=== PATIENT | male | born 1955 | race Two or more races ===

== ENCOUNTER 2020-05-12 14:50 | Inpatient (IN) | payer MEDICAID, OTHER ==
[~2020-05-12] VITALS: Ht 177.8 cm; Wt 70.0 kg
[2020-05-12 16:24] LABS: Hematocrit 35.3 % (41.0-53.0); Hemoglobin 11.7 g/dL (13.5-17.5); Mean Corpuscular Hemoglobin 28.5 pg (28.0-32.0); Mean Corpuscular Hgb Conc. 33.2 g/dL (32.0-36.0); Mean Corpuscular Volume 85.8 fL (80.0-100.0); Platelet Count (auto) 92 10^3/uL (140-450); Red Blood Cells 4.11 10^6/uL (4.5-5.90); Red Cell Distribution Width 15.3 % (11.8-14.3); White Blood Cell 11.3 10^3/uL (4.4-10.8)
[2020-05-12 16:39] LABS: Basophils % (manual) 0 (0.0-2.0); Blast Cells 0; Eosinophils % (manual) 0 (0-7); Metamyelocytes % 0; Myelocytes % 0; Promyelocytes % 0; Reactive Lymphocytes 0
[2020-05-12 16:46] LABS: Albumin 2.6 g/dL (3.4-5.0); Calcium 8.4 mg/dL (8.5-10.1); Magnesium 2.6 mg/dL (1.6-2.6); Potassium 3.8 mmol/L (3.5-5.1)
[2020-05-12 16:53] LABS: BUN/Creatinine Ratio 19.2; Total Protein 6.5 g/dL (6.4-8.2)
[2020-05-12 17:33] LABS: Lactate Dehydrogenase 552 U/L (87-241)
[2020-05-12 17:40] LABS: Band Neutrophils % (manual) 13; Lymphocytes % (manual) 4 (10.0-50.0); Monocytes % (manual) 4 (0-12)
[2020-05-12 17:54] LABS: CRP High Sensitivity > 19.0 mg/dL (< 0.3)
[2020-05-12 18:13] LABS: Urine Amorphous Crystal FEW /hpf (None Seen); Urine Bacteria FEW /hpf (None Seen); Urine Blood 1+ /uL (Negative); Urine Hyaline Cast MOD /lpf (0 - 2); Urine Mucus FEW (None Seen); Urine Specific Gravity 1.017 (1.001-1.035); Urine WBC 152 /hpf (0 - 3); Urine WBC Clumps PRESENT /hpf (None Seen)
[2020-05-12] MEDS ORDERED: SODIUM CHLORIDE 0.9% 1,000 ML IV SCH (21:10)
[2020-05-12] MEDS ORDERED: ONDANSETRON HCL 4 MG/2 ML VIAL IV PRN (21:15)
[2020-05-12] MEDS ORDERED: MORPHINE SULF INJ 2 MG/ML SYRINGE 1ML IV PRN (21:45)
[2020-05-12] MEDS ORDERED: NITROGLYCERIN 0.4 MG SL TAB SL PRN (21:45)
[2020-05-12] MEDS ORDERED: ALBUTEROL SULF HFA 90MCG INH 200DOSE IN SCH (22:00)
[2020-05-12] MEDS ORDERED: FAMOTIDINE 20 MG TAB PO SCH (22:00)
[2020-05-12] MEDS: DOXYCYCLINE 100MG/250ML 250 ML IV SCH (22:00)
[2020-05-12 22:52] VITALS: BP 105/60
[2020-05-13] VITALS (11 sets, daily range): BP systolic 115–152; BP diastolic 51–88
--- NOTE | 2020-05-13 01:00 | NUR ---
Telemetry admit from [facility] N[facility]LOR admitted to Telemetry unit after SBAR received. Patient oriented to SHILPI GALVAN, primary RN, unit, room, bed, and unit policies regarding patient care and visiting hours. Patient now on continuous telemetry monitoring, tele box # 7 and telemetry reading on arrival to unit is sinus rhythm. Patient is alert and oriented x4. Patient denies pain at this time. Patient is on 15L/min nonrebreather. Patient reports slight shortness of breath at this time. No sign/symptoms of distress noted at this time. Respirations are even and unlabored at this time. Instructed on plan of care and encouraged patient to call for assistance as needed, patient verbalized understanding. Bed is locked in lowest position, side rails x 2 are up, call light is within reach, and bed alarm is on.
--- NOTE | 2020-05-13 02:05 | NUR ---
Low Oxygen Saturation Patient's oxygen saturation was sustaining between 86-88% on nonbreather 15L/min. This RN paged RT and updated RT on patient's status. Patient placed on Oxymizer 12L/min and nonrebreather 15L/min per RT Quentin's recommendation. Patient is currently sitting in bed watching television with even and unlabored respirations. No sign/symptoms of distress noted or verbalized at this time. Oxygen saturation at this time is 92% on Oxymizer 12L/min and nonrebreather 15L/min. Will continue care. Addendum: 05/13/20 at 0348 by SHILPI GALVAN RN RN Charge nurse was made aware of patient's status.
--- NOTE | 2020-05-13 02:16 | NUR ---
Hospitalist Paged Re: Low Oxygen Saturation Hospitalist paged regarding low oxygen saturation. Awaiting call back.
--- NOTE | 2020-05-13 02:45 | NUR ---
Hospitalist Returned Call Updated ELECTRICIAN RECTIFIER MAINTENANCE Christianson on patient's status. Notified ELECTRICIAN RECTIFIER MAINTENANCE Christianson that patient's oxygen saturation was sustaining between 86-88% on 15L/min nonrebreather and that patient is now on 12L/min Oxymizer and 15L/min nonrebreather per RT's recommendation with oxygen saturation at 92%. Per ELECTRICIAN RECTIFIER MAINTENANCE Christianson "that's fine", no new orders received at this time.
--- NOTE | 2020-05-13 02:49 | NUR ---
Received Call From Drum Sander Offbearer RE: Oxygen Saturation Spoke with malt house supervisor regarding patient's oxygen saturation. Notified malt house supervisor that patient is on 12L/min Oxymizer and 15L/min nonrebreather with oxygen saturation at 96% at this time, per RT's recommendation. supervisor bakery sanitation made aware that this RN spoke with hospitalist regarding patient's oxygen saturation and no new orders were received. Per malt house supervisor he just spoke and received orders from hospitalist. Per malt house supervisor he will input orders received (see EMR). Will carry out orders once received.
[2020-05-13] MEDS ORDERED: FUROSEMIDE 20 MG/2 ML VIAL IV ONE (03:00)
--- NOTE | 2020-05-13 03:20 | NUR ---
Report Given Report given to Alyssa GONZALES.
--- NOTE | 2020-05-13 03:25 | NUR ---
Patient Transferred to 279B Patient transferred to room 279B. No sign/symptoms of distress noted upon departure. Patient care endorsed to Alyssa GONZALES.
[2020-05-13] MEDS ORDERED: LISI2.5T47 PO (03:28)
[2020-05-13] MEDS ORDERED: METO25TA5 PO (03:28)
[2020-05-13] MEDS ORDERED: HYDR-4072 PO (03:29)
--- NOTE | 2020-05-13 03:30 | NUR ---
Opening Shift Note Assumed care of patient, awake and alert. Instructed on POC and to call for assist PRN, will continue to monitor for changes Q1hr and PRN. bed in low position and call light within reach
--- NOTE | 2020-05-13 04:10 | NUR ---
RT NOTE PT PLACED ON BIPAP #B3 ON CPAP MODE WITH MEDIUM MASK ON STATED SETTINGS. BIPAP IS PLUGGED TO RED OUTLET. ALARMS ARE ON AND AUDIBLE TO NURSES STATION. BEDSIDE POX PLACED PER PROTOCOL. PT APPEARS TO TOLERATE WELL. CONT ORDERED. POX 100% Addendum: 05/13/20 at 0422 by Arianna Rosas RT Amended: Links added.
--- NOTE | 2020-05-13 05:00 | NUR ---
upon entering room patient attempted to get out of bed. Patient began to remove bipap mask o2 saturations in the 80's ,patient became drowsy tilting to the side and rolling his eyes back saying he felt like he was suffocating.Patient assisted back to bed .code assist called. melt house drag operator and discharge coordinator cash, psych arnp vinod, and respiratory at bedside. Patient reassurance and patient placed back on bipap. . patient saturations trending in the 90's. Patient placed with a sitter
[2020-05-13] MEDS ORDERED: LORazepam 2MG/ML-1ML VIAL ONE (05:04)
[2020-05-13] MEDS ORDERED: LORazepam 2MG/ML-1ML VIAL IV ONE ×2 (05:15→16:00)
--- NOTE | 2020-05-13 06:13 | NUR ---
per lab patient blood cultures came back positive for gram - rods. will endorse care to dayshift rn.
--- NOTE | 2020-05-13 06:14 | NUR ---
Patient attempting to get out of bed and removing oxygen monitor. Reassurance and calming measures provided to patient. oxygen saturation trending at 93% bipap in place. sitter at bedside. fall precautions in place.
--- NOTE | 2020-05-13 07:18 | NUR ---
report given to coleman crockett. patient resting in bed with sitter. no signs of sob distress or pain. ox saturation 93%. endorse to coleman alex for positive blood culture of gram negative rods.
[2020-05-13 08:27] LABS: Basophils # (auto) 0 10 ^3/uL (0-0.2); Basophils % (auto) 0.2 % (0.0-2.0); Eosinophils # (auto) 0.1 10 ^3/uL (0-0.8); Eosinophils % (auto) 0.9 % (0.0-7.0); Hematocrit 35.6 % (41.0-53.0); Lymphocytes # (auto) 0.1 10 ^3/uL (0.4-5.4); Lymphocytes % (auto) 1.1 % (10.0-50.0); Mean Corpuscular Hemoglobin 28.7 pg (28.0-32.0); Mean Corpuscular Hgb Conc. 33.7 g/dL (32.0-36.0); Mean Corpuscular Volume 85.1 fL (80.0-100.0); Monocytes # (auto) 0.3 10 ^3/uL (0-1.3); Monocytes % (auto) 2.6 % (0.0-12.0); Neutrophils # (auto) 11.1 10 ^3/uL (1.6-8.6); Neutrophils % (auto) 95.2 % (37.0-80.0); Nucleated Red Blood Cells % 0.1 %; Platelet Count (auto) 96 10^3/uL (140-450); Red Blood Cells 4.18 10^6/uL (4.5-5.90); Red Cell Distribution Width 15.9 % (11.8-14.3); White Blood Cell 11.7 10^3/uL (4.4-10.8)
[2020-05-13 08:47] LABS: Albumin 2.4 g/dL (3.4-5.0); Calcium 8.4 mg/dL (8.5-10.1)
[2020-05-13 08:53] LABS: BUN/Creatinine Ratio 20.4; Bilirubin, Total 1.1 mg/dL (0.2-1.0); Total Protein 6.1 g/dL (6.4-8.2)
[2020-05-13] MEDS: CHOLECALCIFEROL (VITD3) 1,000UNIT=25mCg TAB PO SCH (10:00)
[2020-05-13] MEDS ORDERED: ENOXAPARIN SOD 30 MG/0.3 ML SYRINGE SC SCH (10:00)
[2020-05-13] MEDS ORDERED: ASCORBIC ACID 1,000 MG TAB PO SCH (10:00)
[2020-05-13] MEDS: DOXYCYCLINE 100MG/250ML 250 ML IV SCH (10:49)
--- NOTE | 2020-05-13 13:45 | NUR ---
REPEAT COVID TEST DONE AND TAKEN TO LAB
[2020-05-13] MEDS ORDERED: ENOXAPARIN SOD 40 MG/0.4 ML SYRINGE SC ONE (15:15)
[2020-05-13] MEDS ORDERED: PIPERACILLIN-TAZOB 3.375GM 100 ML IV ONE (15:15)
[2020-05-13] MEDS ORDERED: DEXTROSE (50%) 50ML SYRG IV PRN (15:15)
[2020-05-13] MEDS: SODIUM CHLORIDE 0.9% 1,000 ML IV SCH (15:25)
[2020-05-13] MEDS ORDERED: LORazepam 2MG/ML-1ML VIAL IM ONE (15:30)
[2020-05-13] MEDS: ACCU-CHEK COMFORT CURVE STRIP VI SCH ×2 (17:21→22:00)
[2020-05-13] MEDS: InsuLIN REG 1unit/0.01ml Soln (100units/ml) SC SCH ×2 (17:22→22:00)
--- NOTE | 2020-05-13 18:25 | NUR ---
Respiratory note: PLACED PT ON NRB AT THIS TIME TO TRY AND EAT DINNER. PT TOLERATING WELL AT THIS TIME
--- NOTE | 2020-05-13 18:31 | NUR ---
Respiratory note: PLACED PT BACK ON BIPAP AT THIS TIME WITH ORIGINAL SETTINGS.
--- NOTE | 2020-05-13 19:45 | NUR ---
RECEIVED PATIENT FROM DAY SHIFT RN. PATIENT RESTING IN BED. NO S/S OF DISTRESS NOTED. DENIED PAIN FOR NOW. REORIENTED PATIENT TIME, PLACE AND SITUATION. PATIENT IS ON BIPAP WITH O2 SAT @ 98%. POC INSTRUCTED AND ENCOURAGED PATIENT TO CALL FOR FAMILY LAWYER IF NEEDED. BED IN LOWEST POSITION WITH SIDE RAILS UP X 2. CALL BECKETT WITHIN REACH. ALARM ON. SITTER AT BEDSIDE FOR SAFETY. CONTINUE TO MONITOR FOR CHANGES Q1H AND PRN.
[2020-05-13 20:20] LABS: Alcohol, Urine < 3.0 mg/dL (0-10); Amphetamine Screen, Urine NEGATIVE (NEGATIVE); Barbiturate Scree,Urine NEGATIVE (NEGATIVE); Benzodiazephine Screen, Urine NEGATIVE (NEGATIVE); Cannabinoid Screen, Urine POSITIVE (NEGATIVE); Cocaine Screen, Urine NEGATIVE (NEGATIVE); Opiate Scree,Urine POSITIVE (NEGATIVE); Phencyclidine Screen, Urine NEGATIVE (NEGATIVE)
--- NOTE | 2020-05-13 20:55 | NUR ---
PATIENT WAS GETTING AGITATED AND TRYING TO GET OUT OF BED. PATIENT WAS TRYING TO REMOVE THE BIPAP. STOPPED PATIENT, AND REORIENTED PATIENT TIME, PLACE AND SITUATION. PATIENT FINALLY CALM DOWN AND LYING ON BED. CONTINUE TO MONITOR.
--- NOTE | 2020-05-13 22:25 | NUR ---
ACCU-CHECK, BS 130. NO COVERAGE. CONTINUE TO MONITOR.
[2020-05-13] MEDS: TEMAZEPAM 15 MG CAP PO PRN (23:01)
[2020-05-13] MEDS: PIPERACILLIN-TAZOB 2.25GM 50 ML IV SCH (23:01)
--- NOTE | 2020-05-14 01:54 | NUR ---
PATIENT SLEEPING. NO S/S OF DISTRESS NOTED. BIPAP ON. CONTINUE TO MONITOR.
[2020-05-14] MEDS: SODIUM CHLORIDE 0.9% 1,000 ML IV SCH (04:32)
[2020-05-14] MEDS: ACCU-CHEK COMFORT CURVE STRIP VI SCH ×4 (06:35→22:11)
[2020-05-14] MEDS: PIPERACILLIN-TAZOB 2.25GM 50 ML IV SCH ×3 (06:35→22:09)
[2020-05-14] MEDS: InsuLIN REG 1unit/0.01ml Soln (100units/ml) SC SCH ×4 (06:35→22:17)
--- NOTE | 2020-05-14 06:35 | NUR ---
ACCU-CHECK, BS 147. INSULIN GIVEN ORDERED. CONTINUE TO MONITOR.
[2020-05-14 06:51] LABS: Hematocrit 33.2 % (41.0-53.0); Hemoglobin 11.1 g/dL (13.5-17.5); Mean Corpuscular Hemoglobin 28.5 pg (28.0-32.0); Mean Corpuscular Hgb Conc. 33.5 g/dL (32.0-36.0); Mean Corpuscular Volume 85.1 fL (80.0-100.0); Platelet Count (auto) 96 10^3/uL (140-450); Red Cell Distribution Width 15.9 % (11.8-14.3); White Blood Cell 10.4 10^3/uL (4.4-10.8)
[2020-05-14 07:00] LABS: Basophils % (manual) 0 (0.0-2.0); Blast Cells 0; Eosinophils % (manual) 0 (0-7); Metamyelocytes % 0; Myelocytes % 0; Promyelocytes % 0; Reactive Lymphocytes 0
[2020-05-14 07:12] LABS: Albumin 2.3 g/dL (3.4-5.0); Calcium 8.4 mg/dL (8.5-10.1); Magnesium 2.9 mg/dL (1.6-2.6); Potassium 3.7 mmol/L (3.5-5.1)
[2020-05-14 07:16] LABS: BUN/Creatinine Ratio 24.8; Bilirubin, Total 1.5 mg/dL (0.2-1.0); Total Protein 6.1 g/dL (6.4-8.2)
[2020-05-14 07:39] LABS: Band Neutrophils % (manual) 1; Lymphocytes % (manual) 3 (10.0-50.0); Monocytes % (manual) 4 (0-12)
[2020-05-14 08:00] VITALS: BP 131/77
--- NOTE | 2020-05-14 08:15 | NUR ---
PT REQUESTING TO BE TAKEN OFF BIPAP TO EAT BREAKFAST. PT ON 8 L/MIN VIA OXYMIZER. PT TOLERATING WELL. HR 74 BPM, RR2O BPM, BS ARE DIMINISHED AND CLEAR TO AUSCULTATION, SKIN IS WARM AND DRY TO THE TOUCH. RESPIRATION IS EVEN AND NON LABORED. 94% O2 SATS. WILL CONTINUE TO MONITOR PT.
[2020-05-14 09:00] VITALS: BP 131/77
[2020-05-14] MEDS ORDERED: ENOXAPARIN SOD 80 MG/0.8ML SYRINGE SC SCH (10:00)
[2020-05-14] MEDS: CHOLECALCIFEROL (VITD3) 1,000UNIT=25mCg TAB PO SCH (10:13)
[2020-05-14] MEDS: PANTOPRAZOLE 40 MG TAB PO SCH (10:13)
[2020-05-14] MEDS ORDERED: SODIUM CHLORIDE 0.9% 1,000 ML IV SCH (11:15)
[2020-05-14] MEDS ORDERED: NICOTINE 21MG/24 HR TOPICAL PATCH TD ONE (11:15)
[2020-05-14] MEDS ORDERED: BUMETANIDE 2.5mg/10ml (0.25 mg/ml) INJ IV ONE (11:30)
[2020-05-14] MEDS ORDERED: SODIUM CHL 0.9% 1000 ML BAG XX ONE (12:30)
[2020-05-14 13:00] VITALS: BP 140/86
[2020-05-14] MEDS: ALBUTEROL SULF 2.5 MG/0.5ML(0.5%) NEB SOLN NEB SCH ×3 (13:33→21:56)
[2020-05-14] MEDS: IPRATROPIUM BROM 0.5 MG/2.5ML INH SOL NEB SCH ×3 (13:33→21:56)
--- NOTE | 2020-05-14 13:46 | NUR ---
DR. GARCIA AT BEDSIDE AND PLACED DIALYSIS CATHETER TO PATIENTS LEFT NECK. PATIENT TOLERATED PROCEDURE WELL. DIALYSIS NURSE ON UNIT TO START DIALYSIS SOON. STAT CHEST X RAY PLACED TO OBTAIN PLACEMENT.
[2020-05-14] MEDS: methylPREDNISolone SOD SUCC 40 MG/ML VL IV SCH ×2 (15:08→22:07)
[2020-05-14 16:31] LABS: INR 1.28 (0.9-1.15)
[2020-05-14 16:51] VITALS: BP 147/93
--- NOTE | 2020-05-14 19:30 | NUR ---
RECEIVED PATIENT FROM DAY SHIFT RN. PATIENT RESTING IN BED. NO S/S OF DISTRESS NOTED. DENIED PAIN FOR NOW. REORIENTED PATIENT TIME AND SITUATION. PATIENT IS ON 10L/OXYMIZER WITH O2 SAT @ 88 - 92%. POC INSTRUCTED AND ENCOURAGED PATIENT TO CALL FOR MOLDER CLOSED MOLDS IF NEEDED. BED IN LOWEST POSITION WITH SIDE RAILS UP X 2. CALL BECKETT WITHIN REACH. ALARM ON. SITTER AT BEDSIDE FOR SAFETY. CONTINUE TO MONITOR FOR CHANGES Q1H AND PRN.
--- NOTE | 2020-05-14 21:40 | NUR ---
URINE SAMPLE COLLECTED AND SENT. CONTINUE CARE
[2020-05-14 22:00] VITALS: BP 140/79
[2020-05-14] MEDS: TEMAZEPAM 15 MG CAP PO PRN (22:09)
--- NOTE | 2020-05-14 22:10 | NUR ---
PT DOES NOT WANT TO WEAR BIPAP FOR THE NIGHT, NO SOB NOTED. PT AND SITTER KNOWS TO CALL IF SOB.
--- NOTE | 2020-05-14 22:35 | NUR ---
ACCU-CHECK, BS 215. INSULIN GIVEN ORDERED. CONTINUE TO MONITOR.
[2020-05-14 23:19] LABS: Protein, Urine 61.7 mg/dL (0.0-11.9)
[2020-05-15] MEDS: IPRATROPIUM BROM 0.5 MG/2.5ML INH SOL NEB SCH ×6 (01:51→22:00)
--- NOTE | 2020-05-15 01:54 | NUR ---
PATIENT SLEEPING. NO S/S OF DISTRESS NOTED. O2 SAT 95% ON 10L/OXYMIZER. CONTINUE TO MONITOR.
[2020-05-15 05:00] VITALS: BP 155/94
[2020-05-15 05:39] LABS: BUN/Creatinine Ratio 24.4; Calcium 8.4 mg/dL (8.5-10.1); Magnesium 2.6 mg/dL (1.6-2.6); Phosphorus 3.8 mg/dL (2.5-4.90)
[2020-05-15] MEDS: ALBUTEROL SULF 2.5 MG/0.5ML(0.5%) NEB SOLN NEB SCH ×5 (06:14→22:00)
[2020-05-15] MEDS: ACCU-CHEK COMFORT CURVE STRIP VI SCH ×4 (06:28→22:27)
[2020-05-15] MEDS: PIPERACILLIN-TAZOB 2.25GM 50 ML IV SCH ×4 (06:28→22:27)
[2020-05-15] MEDS: methylPREDNISolone SOD SUCC 40 MG/ML VL IV SCH ×3 (06:28→22:18)
[2020-05-15] MEDS: InsuLIN REG 1unit/0.01ml Soln (100units/ml) SC SCH ×4 (06:29→22:00)
--- NOTE | 2020-05-15 06:30 | NUR ---
ACCU-CHECK, BS 187. INSULIN GIVEN ORDERED. CONTINUE TO MONITOR.
[2020-05-15 08:26] LABS: % Iron Saturation 15.5 % (20-55)
[2020-05-15] MEDS ORDERED: hydrALAZINE HCL 20 MG/ML VL IV ONE (09:30)
[2020-05-15] MEDS: CHOLECALCIFEROL (VITD3) 1,000UNIT=25mCg TAB PO SCH (10:23)
[2020-05-15] MEDS: NICOTINE 21MG/24 HR TOPICAL PATCH TD SCH (10:23)
[2020-05-15] MEDS: ENOXAPARIN SOD 80 MG/0.8ML SYRINGE SC SCH (10:23)
[2020-05-15] MEDS: PANTOPRAZOLE 40 MG TAB PO SCH (10:24)
[2020-05-15] MEDS ORDERED: POTASSIUM EFFERVESENT TAB 25 MEQ PO ONE (10:30)
[2020-05-15] MEDS ORDERED: METOPROLOL TARTRATE 25 MG TAB PO ONE (11:00)
[2020-05-15] MEDS: LORazepam 2MG/ML-1ML VIAL IV PRN (12:01)
[2020-05-15 14:01] VITALS: BP 156/96
[2020-05-15] MEDS ORDERED: FUROSEMIDE 40 MG/4 ML VIAL IV ONE (16:30)
[2020-05-15 17:00] VITALS: BP 162/97
[2020-05-15] MEDS: hydrALAZINE HCL 20 MG/ML VL IV PRN (17:28)
[2020-05-15 17:29] VITALS: BP 162/97
--- NOTE | 2020-05-15 19:17 | NUR ---
RT NOTE PT WAS SEEN BY RT FOR HHN TX. PT TOLERATES WELL VIA MASK. PT ON BEDSIDE POX. PT ON 8L OXYMIZER. NO ADVERSE REACTION NOTED. CONT ORDERED Addendum: 05/15/20 at 1921 by Arianna Rosas RT Amended: Links added.
[2020-05-15 20:00] VITALS: BP 162/97
--- NOTE | 2020-05-15 22:03 | NUR ---
RT NOTE PT WAS SEEN BY RT FOR HHN TX. PT TOLERATES WELL VIA MASK. NO ADVERSE REACTION NOTED. PT WAS FOUND ON 8L OXYMIZER, FIO2 TITRATED TO 6L OXYMIZER. LIANE JOHNSON AT BEDSIDE. CONT ORDERED Addendum: 05/15/20 at 2205 by Arianna Rosas RT Amended: Links added.
[2020-05-15] MEDS: METOPROLOL TARTRATE 25 MG TAB PO SCH (22:25)
[2020-05-15] MEDS: TEMAZEPAM 15 MG CAP PO PRN (22:28)
[2020-05-16] MEDS: IPRATROPIUM BROM 0.5 MG/2.5ML INH SOL NEB SCH ×8 (01:56→22:35)
--- NOTE | 2020-05-16 02:00 | NUR ---
RT NOTE PT WAS SEEN BY RT FOR HHN TX. PT IS SLEEPING AND SHOWS NO S/S OF SOB OR DISTRESS. PT IS ON BEDSIDE POX FOR MONITORING AND THERE IS A SITTER AT BEDSIDE, HR 76, RR 18, BS NOT AUSCULTATED, POX 94% ON 6L OXYMIZER. JANET BOWEN NOTIFIED OF TX NOT GIVEN AND WILL CALL IF TX NEEDED BEFORE NEXT ROUNDS. CONT ORDERED Addendum: 05/16/20 at 0212 by Arianna Rosas RT Amended: Links added.
[2020-05-16 05:00] VITALS: BP 165/100
--- NOTE | 2020-05-16 05:03 | NUR ---
PT RESTING WITH NO C/O PAIN;SITTER AT BEDSIDE.
[2020-05-16] MEDS: PIPERACILLIN-TAZOB 2.25GM 50 ML IV SCH (05:08)
[2020-05-16] MEDS: methylPREDNISolone SOD SUCC 40 MG/ML VL IV SCH (05:37)
[2020-05-16] MEDS: InsuLIN REG 1unit/0.01ml Soln (100units/ml) SC SCH ×4 (06:49→21:18)
[2020-05-16] MEDS: ACCU-CHEK COMFORT CURVE STRIP VI SCH ×4 (06:49→21:17)
[2020-05-16] MEDS: ALBUTEROL SULF 2.5 MG/0.5ML(0.5%) NEB SOLN NEB SCH ×6 (07:09→22:35)
[2020-05-16 08:00] VITALS: BP 158/82
--- NOTE | 2020-05-16 08:00 | NUR ---
PT REPORTS EPISODES OF MILD EPISTAXIS. NO ACTIVE BLEEDING AT MOMENT. WILL CONTINUE TO MONITOR.
[2020-05-16 08:20] LABS: Hematocrit 39.6 % (41.0-53.0); Hemoglobin 13.1 g/dL (13.5-17.5); Mean Corpuscular Hemoglobin 27.7 pg (28.0-32.0); Mean Corpuscular Hgb Conc. 33.1 g/dL (32.0-36.0); Mean Corpuscular Volume 83.6 fL (80.0-100.0); Platelet Count (auto) 126 10^3/uL (140-450); Red Blood Cells 4.73 10^6/uL (4.5-5.90); Red Cell Distribution Width 15.5 % (11.8-14.3); White Blood Cell 17.7 10^3/uL (4.4-10.8)
[2020-05-16 08:28] LABS: Basophils % (manual) 0 (0.0-2.0); Blast Cells 0; Eosinophils % (manual) 0 (0-7); Myelocytes % 0; Promyelocytes % 0; Reactive Lymphocytes 0
[2020-05-16 08:47] LABS: Albumin 2.6 g/dL (3.4-5.0); BUN/Creatinine Ratio 29.1; Bilirubin, Total 1.3 mg/dL (0.2-1.0); Calcium 8.4 mg/dL (8.5-10.1)
[2020-05-16 08:53] LABS: Potassium 2.8 mmol/L (3.5-5.1)
[2020-05-16 09:08] LABS: Band Neutrophils % (manual) 3; Lymphocytes % (manual) 2 (10.0-50.0); Metamyelocytes % 3; Monocytes % (manual) 5 (0-12)
[2020-05-16] MEDS: ENOXAPARIN SOD 80 MG/0.8ML SYRINGE SC SCH (10:00)
--- NOTE | 2020-05-16 10:13 | NUR ---
DR. SHAIKH PENA. PT IN AGREEMENT WITH PLAN OF CARE. MD MADE AWARE OF LAB RESULTS AND PT'S C/O HEADACHE. WILL CONTINUE TO MONITOR
[2020-05-16] MEDS ORDERED: POTASSIUM CHL 20MEQ/100ML 100 ML IV ONE (10:15)
[2020-05-16] MEDS ORDERED: KETOROLAC TROMETH 30 MG/ML 1ML VIAL IV ONE (10:15)
[2020-05-16] MEDS ORDERED: POTASSIUM CHL 20 Meq TABLET PO ONE (10:15)
[2020-05-16] MEDS: CHOLECALCIFEROL (VITD3) 1,000UNIT=25mCg TAB PO SCH (10:51)
[2020-05-16] MEDS: PANTOPRAZOLE 40 MG TAB PO SCH (10:52)
[2020-05-16] MEDS: NICOTINE 21MG/24 HR TOPICAL PATCH TD SCH (10:52)
[2020-05-16] MEDS: METOPROLOL TARTRATE 25 MG TAB PO SCH ×2 (10:52→21:07)
[2020-05-16] MEDS ORDERED: cefTRIAXone 1GM/50ML D5W 50 ML IV ONE (11:45)
--- NOTE | 2020-05-16 12:09 | NUR ---
IV INSERTION TO RIGHT HAND #20. 1st ATTEMPT FLUSHING WELL. PT TOLERATED PROCEDURE WELL.
--- NOTE | 2020-05-16 12:41 | NUR ---
Nutrition Assessment Notes: Please see attached link for complete assessment Est [employer] needs BW 77 [id number] kcals (30-35 kcal/kgBW), Est Protein needs: 92-107 gms/day (1.2-1.4 gm/kgBW r/t HD). Will continue to monitor and reassess prn. Addendum: 05/16/20 at [address] Amended: Links added.
[2020-05-16 13:00] VITALS: BP 157/90
[2020-05-16] MEDS: hydrALAZINE HCL 20 MG/ML VL IV PRN (18:01)
--- NOTE | 2020-05-16 19:05 | NUR ---
OPENING NOTE Assumed care of patient at 1900. Patient currently on 8L via face mask. Patient's respiratory sounds clear, equal bilaterally and slightly labored. Patient exhibiting no signs of distress at this time. Updated patient on POC. Sitter present at bedside. Bed locked in lowest position, HOB elevated at least 30 degrees, side rails up x 2 and call light is within reach. Will continue to monitor.
--- NOTE | 2020-05-16 20:40 | NUR ---
Called/paged Dr. Clifford called re:PRN pain medication for headache. Waiting for call back. Continue care.
[2020-05-16] MEDS ORDERED: IBUPROFEN 600 MG TAB PO PRN ×2 (20:45→22:45)
--- NOTE | 2020-05-16 20:45 | NUR ---
returned call Dr. Clifford returned call, updated on patient status and reason for call, orders received. Ibuprofen 600mg Q8H prn ordered. Continue care.
[2020-05-16] MEDS ORDERED: methylPREDNISolone SOD SUCC 40 MG/ML VL IV SCH (22:00)
--- NOTE | 2020-05-16 22:20 | NUR ---
MELISSA HOSPITALIST Notified hospitalist Dr. Clifford of high blood pressure of 166/95. No new orders were given at this time.
[2020-05-16] MEDS: TEMAZEPAM 15 MG CAP PO PRN (23:43)
[2020-05-17] MEDS: IPRATROPIUM BROM 0.5 MG/2.5ML INH SOL NEB SCH ×6 (02:36→21:50)
[2020-05-17 05:36] LABS: Hematocrit 38.4 % (41.0-53.0); Mean Corpuscular Hemoglobin 28.3 pg (28.0-32.0); Mean Corpuscular Hgb Conc. 33.9 g/dL (32.0-36.0); Mean Corpuscular Volume 83.3 fL (80.0-100.0); Platelet Count (auto) 125 10^3/uL (140-450); Red Blood Cells 4.61 10^6/uL (4.5-5.90); Red Cell Distribution Width 15.6 % (11.8-14.3); White Blood Cell 15.7 10^3/uL (4.4-10.8)
[2020-05-17 06:03] LABS: Albumin 2.6 g/dL (3.4-5.0); Calcium 8.3 mg/dL (8.5-10.1); Potassium 3.5 mmol/L (3.5-5.1)
[2020-05-17 06:06] LABS: BUN/Creatinine Ratio 32.2; Bilirubin, Total 0.9 mg/dL (0.2-1.0); Total Protein 6.6 g/dL (6.4-8.2)
[2020-05-17 06:12] LABS: Basophils % (manual) 0 (0.0-2.0); Blast Cells 0; Eosinophils % (manual) 0 (0-7); Myelocytes % 0; Promyelocytes % 0; Reactive Lymphocytes 0
--- NOTE | 2020-05-17 06:21 | NUR ---
CRITICAL LAB VALUE BUN at 89. Increase from yesterday's value of 88. Nephrology and hospitalist are aware.
[2020-05-17] MEDS: ALBUTEROL SULF 2.5 MG/0.5ML(0.5%) NEB SOLN NEB SCH ×5 (06:24→21:50)
[2020-05-17] MEDS: LORazepam 2MG/ML-1ML VIAL IV PRN ×2 (06:33→20:04)
[2020-05-17 06:35] LABS: Lymphocytes % (manual) 3 (10.0-50.0); Monocytes % (manual) 3 (0-12)
[2020-05-17 06:37] LABS: Band Neutrophils % (manual) 3; Metamyelocytes % 2
[2020-05-17] MEDS: ACCU-CHEK COMFORT CURVE STRIP VI SCH ×4 (06:38→21:25)
[2020-05-17] MEDS: InsuLIN REG 1unit/0.01ml Soln (100units/ml) SC SCH ×4 (06:39→21:27)
--- NOTE | 2020-05-17 07:30 | NUR ---
CLOSING NOTE Endorsed care to coleman GONZALES.
--- NOTE | 2020-05-17 07:30 | NUR ---
RECEIVED REPORT AND CONTINUATION OF CARE,PATIENT AWAKE,ALERT, ORIENTED,OXYMIZER AT 8 LITERS IN USED, MARINE ELECTRONICS TECHNICIAN AT BEDSIDE TO MAKE SURE OXYMASK IS ON CONTINUOUSLY DUE TO PATIENT DESATURATES VERY QUICKLY PER REPORT.PATIENT RE ORIENTED,CALL LIGHT WITHIN REACH PATIENT INSTRUCTED,REMINDED TO CALL FOR ASSISTANCE ,SIDE RAILS UP X 2 BED ALARM ON WILL CHECK PATIENT 1 HOUR AND NEEDED.
[2020-05-17 08:31] VITALS: BP 155/93
--- NOTE | 2020-05-17 08:50 | NUR ---
TO [facility]. FOR VQ SCAN ON OXYMASK AT 8 LITERS,ACCOMPANIED BY [facility] TECH
[2020-05-17] MEDS ORDERED: cefTRIAXone 1GM/50ML D5W 50 ML IV SCH (09:00)
[2020-05-17] MEDS: METOPROLOL TARTRATE 25 MG TAB PO SCH ×2 (10:00→21:14)
[2020-05-17] MEDS: CHOLECALCIFEROL (VITD3) 1,000UNIT=25mCg TAB PO SCH (10:00)
[2020-05-17] MEDS: PANTOPRAZOLE 40 MG TAB PO SCH (10:00)
--- NOTE | 2020-05-17 10:00 | NUR ---
Flora CHANEY HOLD, PATIENT FOR HEMODIALYSIS
--- NOTE | 2020-05-17 10:40 | NUR ---
HOSPIALIST Called/paged CURING BIN OPERATOR JOSELINE HODGES called re: A TEMPERATURE OF 100.6 . Waiting for call back. Continue care. Addendum: 05/17/20 at 2344 by ANIL CANTRELL RN RN WRONG TIME
[2020-05-17 11:42] LABS: Hepatitis B Surface Antibody Negative
--- NOTE | 2020-05-17 12:27 | NUR ---
MD VISIT DR. OSMAN HERE TO SEE AND EXAMINED PATIENT
[2020-05-17] MEDS ORDERED: SODIUM CHLORIDE 0.9% 1,000 ML IV SCH (12:45)
[2020-05-17 12:49] LABS: Hepatitis B Core IgM Negative; Hepatitis B Surface Antigen Negative (Negative); Hepatitis C Antibody Negative (Negative)
[2020-05-17 13:00] VITALS: BP 158/89
--- NOTE | 2020-05-17 13:04 | NUR ---
PER DR. OSMAN TO HAVE CTA PROCEDURE FIRST BEFORE HEMODIALYSIS
--- NOTE | 2020-05-17 13:50 | NUR ---
TEMPORARY OFFICE ASSISTANT HERE,STATED CTA WILL BE DONE AT 1600 DUR TO PATIENT HAD LUNCH
[2020-05-17] MEDS: ENOXAPARIN SOD 80 MG/0.8ML SYRINGE SC SCH (13:53)
[2020-05-17] MEDS: NICOTINE 21MG/24 HR TOPICAL PATCH TD SCH (13:54)
--- NOTE | 2020-05-17 14:06 | NUR ---
SUPERVISOR MAPPING INFORMED CTA STUDY NEEDS TO BE DONE FIRST AND SCHEDULED AT 1600, BEFORE HEMODIALYSIS
[2020-05-17] MEDS ORDERED: IOHEXOL 350 MG/ML 100ML IJ ONE (14:10)
--- NOTE | 2020-05-17 15:15 | NUR ---
PATIENT FOR CTA CHEST,NEEDING g#20 TO FOREARM OR TO AC,ATTEMPTED AFTER 9 STICKS FROM 3 DIFFERENT NURSES UNSUCCESSFUL,PATIENT STATED TO REST AND HAVE THE TEST DONE TOMORROW
--- NOTE | 2020-05-17 15:30 | NUR ---
INFORMED DR. VICENTE INFORMED UNABLE TO START IV NEEDING FOR CTA,WAS ATTEMPTED X9 FROM DEFERENT RN'S AND PATIENT REQUESTING TO REST AND HAVE TEST DONE TOMORROW.
[2020-05-17] MEDS: HYDROcodone-ACET 5/325MG TAB PO PRN (16:01)
--- NOTE | 2020-05-17 16:03 | NUR ---
C/O HEAD ACHE,SCALE OF 5/10 ,MEDICATED WITH NORCO 5/325 PO,SEE eMAR
--- NOTE | 2020-05-17 16:05 | NUR ---
CNC LATHE MACHINIST AT BEDSIDE,HEMODIALYSIS TREATMENT STARTED
--- NOTE | 2020-05-17 16:11 | NUR ---
SONIA FROM CT DEPT. INFORMED OF UNABLE TO START G#20 FOR CTA
[2020-05-17 17:00] VITALS: BP 162/107
--- NOTE | 2020-05-17 17:00 | NUR ---
Temperature checked [id number],patient just had [place] at 5/325 at 1603,cooling measures,ice pack applied.
--- NOTE | 2020-05-17 18:00 | NUR ---
Temperature re checked 100.6,hemodialysis in progress.
--- NOTE | 2020-05-17 18:09 | NUR ---
Respiratory note: AT BEDSIDE FOR MED NEB TX PT ON DIALYSIS AT THIS TIME. CONGOLESE SPEAKER ONLY. PT WOULD LIKE ME TO RETURN AT A LATER TIME TO ADMINISTER MED NEB TX.
--- NOTE | 2020-05-17 19:10 | NUR ---
OPENING NOTE Assumed care of patient at 1900. Respiratory sounds clear, equal bilaterally and slightly labored. Patient is currently on 8 L O2 via simple mask. Patient verbalized that he is not feeling any pain at this time. Updated patient on POC. HOB elevated at least 30 degrees, bed locked in lowest position, side rails up x 3, and call light is within reach. Will continue to monitor.
--- NOTE | 2020-05-17 19:15 | NUR ---
HEMODIALYSIS ENDED TOLERATED WELL,REPORT GIVEN TO INCOMING NOC SHIFT RN,NO DISTRESS NO DISCOMFORT.
--- NOTE | 2020-05-17 21:00 | NUR ---
POOR PO INTAKE PATIENT EXHIBITING SIGNS OF POOR PO INTAKE EVIDENCED BY CONSUMPTION OF 0% OF DINNER
[2020-05-17] MEDS: cefTRIAXone 1GM/50ML D5W 50 ML IV SCH (21:13)
--- NOTE | 2020-05-17 22:40 | NUR ---
HOSPIALIST Called/paged TRAIN CONTROL ELECTRONIC TECHNICIAN JOSELINE HODGES called re: A TEMPERATURE OF 100.6 . Waiting for call back. Continue care. Addendum: 05/17/20 at 2346 by ANIL CANTRELL RN RN HOSPITALIST
--- NOTE | 2020-05-17 23:30 | NUR ---
HOSPITALIST RE-Called/paged TEACHER HOME THERAPY JOSELINE HODGES RE-called re: A TEMPERATURE OF 100.7. Waiting for call back. Continue care.
--- NOTE | 2020-05-18 | NUR ---
HOSPITALIST RE-Called/paged ARABIC LINGUIST JOSELINE HODGES RE-called re: A TEMPERATURE OF 100.7. Waiting for call back. Continue care.
[2020-05-18] MEDS ORDERED: IBUPROFEN 600 MG TAB PO ONE (00:30)
--- NOTE | 2020-05-18 00:30 | NUR ---
Hospitalist returned call Hospitalist PORTFOLIO MANAGER Paresh Christianson returned call, updated on patient status and reason for call, received orders for Motrin 600mg PO once. Continue care.
[2020-05-18] MEDS: TEMAZEPAM 15 MG CAP PO PRN ×2 (00:42→21:08)
[2020-05-18] MEDS: IPRATROPIUM BROM 0.5 MG/2.5ML INH SOL NEB SCH ×6 (02:28→22:14)
[2020-05-18] MEDS: HYDROcodone-ACET 5/325MG TAB PO PRN ×3 (03:30→20:08)
--- NOTE | 2020-05-18 04:48 | NUR ---
PATIENT REMOVED SIMPLE MASK AND ATTEMPTED TO GET OUT OF BED. O2 SAT DROPPED TO 78%. EDUCATED PATIENT ON IMPORTANCE OF KEEPING THE SIMPLE MASK ON AND PATIENT VERBALIZED UNDERSTANDING. PLACED COMMODE AT BEDSIDE.
[2020-05-18 05:55] LABS: Hematocrit 41.6 % (41.0-53.0); Hemoglobin 13.8 g/dL (13.5-17.5); Mean Corpuscular Hemoglobin 28.1 pg (28.0-32.0); Mean Corpuscular Volume 85.1 fL (80.0-100.0); Platelet Count (auto) 158 10^3/uL (140-450); Red Blood Cells 4.89 10^6/uL (4.5-5.90); White Blood Cell 15.6 10^3/uL (4.4-10.8)
[2020-05-18] MEDS: ALBUTEROL SULF 2.5 MG/0.5ML(0.5%) NEB SOLN NEB SCH ×5 (06:19→22:15)
[2020-05-18 06:21] VITALS: BP 125/91
[2020-05-18 06:42] LABS: BUN/Creatinine Ratio 24.8; Calcium 8.1 mg/dL (8.5-10.1)
[2020-05-18 06:45] LABS: Band Neutrophils % (manual) 0; Basophils % (manual) 0 (0.0-2.0); Blast Cells 0; Eosinophils % (manual) 0 (0-7); Metamyelocytes % 0; Myelocytes % 0; Promyelocytes % 0; Reactive Lymphocytes 0
--- NOTE | 2020-05-18 07:24 | NUR ---
Closing note Endorsed care of patient to day shift RN.
[2020-05-18 07:28] LABS: Lymphocytes % (manual) 5 (10.0-50.0); Monocytes % (manual) 3 (0-12)
--- NOTE | 2020-05-18 07:30 | NUR ---
RECEIVED REPORT AND CONTINUATION OF CARE,PATIENT AWAKE,ALERT, ORIENTED,UPDATED WITH PLAN OF CARE, CALL LIGHT WITHIN REACH PATIENT INSTRUCTED,REMINDED TO CALL FOR ASSISTANCE ,YOUTH OFFICER AT BEDSIDE,SIDE RAILS UP X 2 BED ALARM ON,WILL CHECK PATIENT 1 HOUR AND NEEDED.
[2020-05-18 09:00] VITALS: BP 148/94
--- NOTE | 2020-05-18 09:20 | NUR ---
PHYSICAL THERAPY P.T. AT BEDSIDE,ASSISTED AND AMBULATED PATIENT, WITH OXYGEN,ON OXYMIZER AT 8 LITERS,PATIENT AMBULATED ALL THE WAY TO THE DOOR THEN BACK TO BED,TOLERATED ACTIVITY.
[2020-05-18] MEDS ORDERED: POTASSIUM CHL 20 Meq TABLET PO ONE (10:00)
[2020-05-18] MEDS: CHOLECALCIFEROL (VITD3) 1,000UNIT=25mCg TAB PO SCH (10:21)
[2020-05-18] MEDS: predniSONE 20 MG TAB PO SCH (10:22)
[2020-05-18] MEDS: PANTOPRAZOLE 40 MG TAB PO SCH (10:24)
[2020-05-18] MEDS: cefTRIAXone 1GM/50ML D5W 50 ML IV SCH ×2 (10:24→21:09)
[2020-05-18] MEDS: METOPROLOL TARTRATE 25 MG TAB PO SCH ×2 (10:24→21:09)
[2020-05-18] MEDS: NICOTINE 21MG/24 HR TOPICAL PATCH TD SCH (10:25)
[2020-05-18] MEDS: ENOXAPARIN SOD 80 MG/0.8ML SYRINGE SC SCH (10:26)
[2020-05-18] MEDS: ACCU-CHEK COMFORT CURVE STRIP VI SCH ×3 (12:06→22:27)
[2020-05-18] MEDS: InsuLIN REG 1unit/0.01ml Soln (100units/ml) SC SCH ×3 (12:06→22:29)
--- NOTE | 2020-05-18 12:30 | NUR ---
PATIENT DAUGHTER NAI CALLED (PASSWORD CLARIFIED) UPDATED WITH PATIENT STATUS AND PLAN OF CARE
--- NOTE | 2020-05-18 12:34 | NUR ---
DR. OSMAN HERE RECEIVED ORDER TO START IVF OF .9NS AT 60CC/HR
--- NOTE | 2020-05-18 12:36 | NUR ---
Nutrition Followup/Consult Notes: Pt wt is 71.3 kg Pt was sleeping with METAL PRECISION MACHINE ASSEMBLER at bedside when rounded this morning. Per RN doc, pt appetite is fair, aeb ave 67% PO intake over 3 meals. Per METAL PRECISION MACHINE ASSEMBLER, pt is tolerating food well, but he does have some food dislikes. Requested that pt be encouraged to increase his PO intake by residing METAL PRECISION MACHINE ASSEMBLER. Noted his dislikes and relayed to diet kitchen cook. Pt with no distress. Will continue to monitor PO status, skin status, pertinent labs and weight trends. Will f/u in 3-5 days. Est Energy needs BW 77 [id number] kcals (30-35 kcal/kgBW), Est Protein needs: 92-107 gms/day (1.2-1.4 gm/kgBW r/t HD). Will continue to monitor and reassess prn. LABS: Pot 3.0 L, BUN 55 L, Cr 2.22 L, GFR 32 L (Stg 3), Alb 2.6 L, Gluc 192 H GI: Last BM noted on 05/09 per RN doc BS: 18 mod risk Refer to wound assessment report for full details. PES: Comments 1) Consider CCHO 60 gm if blood glu continues to be elev along with current diet 2) Consider low TG along with current diet 3) Continue current plan of care
[2020-05-18 13:00] VITALS: BP 135/83
[2020-05-18] MEDS: SODIUM CHLORIDE 0.9% 1,000 ML IV SCH ×2 (13:00→16:56)
--- NOTE | 2020-05-18 14:20 | NUR ---
IV g#20 TO LEFT AC STARTED BY PICC LINE RN
[2020-05-18] MEDS: AZITHROMYCIN 250 MG TAB PO SCH (16:55)
[2020-05-18 17:00] VITALS: BP 146/80
--- NOTE | 2020-05-18 19:06 | NUR ---
STATUS UNCHANGED NO DISTRESS NO DISCOMFORT.REPORT GIVEN TO INCOMING NOC SHIFT RN,
--- NOTE | 2020-05-18 19:10 | NUR ---
OPENING NOTE Assumed care of patient at 1900. Respiratory sounds clear, equal bilaterally and slightly labored. Patient is currently on 8 L O2 via Oxymizer. Patient verbalized that he is not feeling any pain at this time. Updated patient on POC. HOB elevated at least 30 degrees, bed locked in lowest position, side rails up x 3, and call light is within reach. Sitter present at bedside. Will continue to monitor.
[2020-05-19] MEDS: ALBUTEROL SULF 2.5 MG/0.5ML(0.5%) NEB SOLN NEB SCH ×6 (02:41→22:33)
[2020-05-19] MEDS: IPRATROPIUM BROM 0.5 MG/2.5ML INH SOL NEB SCH ×6 (02:42→22:33)
[2020-05-19 03:58] VITALS: BP 144/88
[2020-05-19] MEDS: LORazepam 2MG/ML-1ML VIAL IV PRN ×3 (04:25→21:13)
[2020-05-19 05:00] VITALS: BP 145/85
[2020-05-19] MEDS: InsuLIN REG 1unit/0.01ml Soln (100units/ml) SC SCH ×4 (06:27→22:25)
--- NOTE | 2020-05-19 06:28 | NUR ---
MEDICATION HELD Insulin held due to poor PO intake as evidenced by meal consumption of less than 25% during shift.
[2020-05-19] MEDS: ACCU-CHEK COMFORT CURVE STRIP VI SCH ×4 (07:00→22:13)
--- NOTE | 2020-05-19 07:00 | NUR ---
CLOSING SHIFT NOTE ENDORSED CARE TO DAY SHIFT RN
--- NOTE | 2020-05-19 07:25 | NUR ---
Opening Shift Note Assumed care of patient, awake and alert x3. No S/S of distress/SOB, respirations are shallow and slightly labored. Patient is on 15L via Non-rebreather mask, 02 sat at 93%. Updated on POC and instructed to call for assistance as needed, patient verbalized understanding. Bed locked in lowest position, HOB at 30 degrees, side rails up x2, call light within reach. Safety precautions in place. Sitter at bedside. Will continue to monitor for changes Q1hr and PRN.
[2020-05-19 07:32] LABS: Hematocrit 40.2 % (41.0-53.0); Hemoglobin 13.3 g/dL (13.5-17.5); Mean Corpuscular Hemoglobin 27.9 pg (28.0-32.0); Mean Corpuscular Hgb Conc. 33.1 g/dL (32.0-36.0); Mean Corpuscular Volume 84.3 fL (80.0-100.0); Platelet Count (auto) 201 10^3/uL (140-450); Red Blood Cells 4.77 10^6/uL (4.5-5.90); Red Cell Distribution Width 15.7 % (11.8-14.3); White Blood Cell 26.2 10^3/uL (4.4-10.8)
[2020-05-19 07:36] LABS: Band Neutrophils % (manual) 0; Basophils % (manual) 0 (0.0-2.0); Blast Cells 0; Metamyelocytes % 0; Myelocytes % 0; Promyelocytes % 0; Reactive Lymphocytes 0
[2020-05-19] MEDS ORDERED: LORazepam 2MG/ML-1ML VIAL IV ONE (07:45)
--- NOTE | 2020-05-19 07:46 | NUR ---
RT NOTE: PT FOUND ON NON-REBREATHER WITH SPO2 BETWEEN 94-96%. ATTEMPTED TO PLACE PT ON OXYMIZER BUT SPO2 DROPPED BETWEEN 89-90% ON 12L. PLACED BACK ONTO NON-REBREATHER AT 15 WITH SPO2 AT 94%. NO DISTRESS NOTED. PT STATES THAT HE HAS PERIODS OF SOB. SITTER AT BEDSIDE. WILL CONTINUE TO MONITOR.
[2020-05-19 08:00] VITALS: BP 154/86
[2020-05-19 08:04] LABS: BUN/Creatinine Ratio 27.1; Calcium 8.4 mg/dL (8.5-10.1); Potassium 3.4 mmol/L (3.5-5.1)
[2020-05-19 08:06] LABS: Eosinophils % (manual) 1 (0-7); Lymphocytes % (manual) 4 (10.0-50.0); Monocytes % (manual) 5 (0-12)
[2020-05-19] MEDS: cefTRIAXone 1GM/50ML D5W 50 ML IV SCH ×2 (10:03→22:11)
[2020-05-19] MEDS: ENOXAPARIN SOD 80 MG/0.8ML SYRINGE SC SCH (10:03)
[2020-05-19] MEDS: PANTOPRAZOLE 40 MG TAB PO SCH (10:03)
[2020-05-19] MEDS: predniSONE 20 MG TAB PO SCH (10:04)
[2020-05-19] MEDS: HYDROcodone-ACET 5/325MG TAB PO PRN ×2 (10:06→16:52)
[2020-05-19] MEDS: CHOLECALCIFEROL (VITD3) 1,000UNIT=25mCg TAB PO SCH (10:06)
[2020-05-19] MEDS: AZITHROMYCIN 250 MG TAB PO SCH (10:07)
[2020-05-19] MEDS: METOPROLOL TARTRATE 25 MG TAB PO SCH ×2 (10:07→22:13)
[2020-05-19] MEDS: NICOTINE 21MG/24 HR TOPICAL PATCH TD SCH (10:07)
[2020-05-19] MEDS ORDERED: BUSP10TA90 PO (10:27)
[2020-05-19] MEDS ORDERED: BACL20TA PO (10:27)
[2020-05-19] MEDS ORDERED: HYDR-3682 PO (10:27)
[2020-05-19] MEDS ORDERED: GABA800T97 PO (10:27)
[2020-05-19] MEDS ORDERED: SERT100T PO (10:27)
[2020-05-19] MEDS ORDERED: POTASSIUM EFFERVESENT TAB 25 MEQ PO ONE (12:30)
--- NOTE | 2020-05-19 12:39 | NUR ---
SPOKE WITH MD BLAKELY ORDERS RECEIVED TO RESUME ALL HOME MEDICATIONS. WILL INPUT AND FOLLOW THROUGH.
--- NOTE | 2020-05-19 12:40 | NUR ---
CT CHEST ANGIO IS ON HOLD UNTIL 05/20 LABS ARE NOT WITHIN RANGE TO HAVE CONTRAST AT THIS TIME PER RADIOLOGY. RADIOLOGY WILL REVIEW LABS IN THE AM AND WILL ATTEMPT TO FOLLOW THROUGH WITH CT. PATIENT IS TO BE NPO AFTER MIDNIGHT, WILL INFORM DIRECTOR BUSINESS MANAGEMENT RN.
[2020-05-19] MEDS ORDERED: hydrOXYzine 25 MG TAB or CAP PO PRN (12:45)
[2020-05-19 13:00] VITALS: BP 141/86
[2020-05-19] MEDS: SODIUM CHLORIDE 0.9% 1,000 ML IV SCH (13:10)
[2020-05-19] MEDS: GABAPENTIN 400 MG CAP PO SCH ×2 (14:12→22:13)
[2020-05-19] MEDS: busPIRone HCL 10 MG TAB PO SCH ×2 (14:12→22:11)
[2020-05-19] MEDS: SERTRALINE HCL 50 MG TAB PO SCH (14:12)
[2020-05-19] MEDS: BACLOFEN 10 MG TAB PO SCH ×2 (14:12→22:11)
--- NOTE | 2020-05-19 14:56 | NUR ---
RT NOTE: WAS ABLE TO PLACE PT ONTO 10L SIMPLE MASK. SPO2 HOLDING ABOUT 93%. NO DISTRESS NOTED. SITTER BEDSIDE AND AWARE TO PLACE NON-REBREATHER BACK ON IF PT DESATURATES AND PAGE FRO ME. WILL NOTIFY RN AND CONTINUE TO MONITOR.
--- NOTE | 2020-05-19 15:48 | NUR ---
assessment Patient is a 64 year old male. Per patients daughter Geetha prior to admission patient lived home with her and family and was independent. Per Geetha patient had no need for DME. Geetha informed ut patients PCP is Dr Ortiz. Geetha informed ut patient was having shortness of breath and a cough that was getting worse so family called 911 and patient was admitted. Patient is on 15L oxygen at this time. I informed Geetha patients post discharge needs to be determined prior to discharge. I informed Geetha I will continue to monitor and follow up as appropriate. Geetha verbalized understanding. Addendum: 05/19/20 at 1552 by Salmoe DUARTE Amended: Links added.
[2020-05-19] MEDS: Glucerna Carbsteady SHAKE Vanilla 8oz PO SCH (18:00)
[2020-05-19] MEDS ORDERED: FUROSEMIDE 40 MG/4 ML VIAL IV ONE (18:45)
[2020-05-19] MEDS ORDERED: POTASSIUM CHL 20 Meq TABLET PO ONE (19:00)
--- NOTE | 2020-05-19 19:56 | NUR ---
RECEIVED PATIENT FROM DAY SHIFT RN. PATIENT RESTING IN BED. NO S/S OF DISTRESS NOTED. DENIED PAIN FOR NOW. REORIENTED PATIENT TIME AND SITUATION. PATIENT IS ON 10L/MASK WITH O2 SAT @ 94 %. MEDICATED PATIENT ORAL POTASSIUM PILL, PATIENT SWALLOWED WELL. POC INSTRUCTED AND ENCOURAGED PATIENT TO CALL FOR BANBURY MIXER OPERATOR IF NEEDED. BED IN LOWEST POSITION WITH SIDE RAILS UP X 2. CALL BECKETT WITHIN REACH. ALARM ON. SITTER AT BEDSIDE FOR SAFETY. CONTINUE TO MONITOR FOR CHANGES Q1H AND PRN.
[2020-05-19 21:20] VITALS: BP 140/79
--- NOTE | 2020-05-19 22:25 | NUR ---
ACCU-CHECK, BS 152. INSULIN GIVEN ORDERED. CONTINUE TO MONITOR
--- NOTE | 2020-05-19 23:08 | NUR ---
REASSESSED PATIENT, BP 121/77, HR 89. CONTINUE TO MONITOR.
--- NOTE | 2020-05-19 23:54 | NUR ---
PATIENT NPO NOW. WATER AND FOOD REMOVED FROM BEDSIDE. SITTER AT BEDSIDE FOR SAFETY. CONTINUE TO MONITOR.
--- NOTE | 2020-05-20 01:57 | NUR ---
PATIENT'S O2 SAT DOWN TO 84% ON 10L/MASK AFTER PATIENT CHANGED POSITION IN THE BED. REPOSITIONED PATIENT TO COMFORT,, AND ASKED PATIENT TO BREATH DEEPLY, O2 SAT AROUND 89%, INCREASED O2 TO 15L/MASK, O2 SAT 90 - 91%. WILL CONTINUE TO MONITOR.
--- NOTE | 2020-05-20 02:55 | NUR ---
PATIENT BREATHING EVEN AND UNLABORED, NO DISTRESS NOTED. O2 SAT @ 93% TO 94%, OXYGEN DOWN TO 10L/MASK, O2 SAT STAT 92%. CONTINUE TO MONITOR.
--- NOTE | 2020-05-20 05:54 | NUR ---
PATIENT'S AGITATED AND C/O COULD NOT BREATH THROUGH THE MASK. O2 SAT DOWN TO 84%. RT GAGED AND CAME TO BEDSIDE. CHANGED MASK TO OXYMIZER. PATIENT CALM NOW. CONTINUE TO MONITOR.
[2020-05-20 06:22] LABS: Hemoglobin 13.3 g/dL (13.5-17.5)
[2020-05-20 06:24] LABS: Hematocrit 40.9 % (41.0-53.0); Mean Corpuscular Hemoglobin 27.5 pg (28.0-32.0); Mean Corpuscular Hgb Conc. 32.4 g/dL (32.0-36.0); Mean Corpuscular Volume 84.7 fL (80.0-100.0); Platelet Count (auto) 296 10^3/uL (140-450); Red Blood Cells 4.83 10^6/uL (4.5-5.90); Red Cell Distribution Width 15.6 % (11.8-14.3)
[2020-05-20] MEDS: BACLOFEN 10 MG TAB PO SCH ×3 (06:24→22:01)
[2020-05-20] MEDS: GABAPENTIN 400 MG CAP PO SCH ×3 (06:24→22:01)
[2020-05-20] MEDS: busPIRone HCL 10 MG TAB PO SCH ×3 (06:24→22:01)
[2020-05-20] MEDS: InsuLIN REG 1unit/0.01ml Soln (100units/ml) SC SCH ×2 (06:25→11:30)
[2020-05-20] MEDS: ACCU-CHEK COMFORT CURVE STRIP VI SCH ×2 (06:25→12:07)
[2020-05-20 06:26] VITALS: BP 157/78
[2020-05-20] MEDS: HYDROcodone-ACET 5/325MG TAB PO PRN ×2 (06:26→19:33)
--- NOTE | 2020-05-20 06:26 | NUR ---
PATIENT C/O PAIN @ 04/14, MEDICATED PATIENT ORDERED. ACCU-CHECK, BS 158. INSULIN GIVEN ORDERED. CONTINUE TO MONITOR.
[2020-05-20 06:31] LABS: White Blood Cell 30.4 10^3/uL (4.4-10.8)
[2020-05-20 06:32] LABS: Calcium 8.8 mg/dL (8.5-10.1); Magnesium 2.6 mg/dL (1.6-2.6)
[2020-05-20 06:34] LABS: BUN/Creatinine Ratio 27.5
[2020-05-20 06:35] LABS: Band Neutrophils % (manual) 0; Basophils % (manual) 0 (0.0-2.0); Blast Cells 0; Eosinophils % (manual) 0 (0-7); Metamyelocytes % 0; Myelocytes % 0; Promyelocytes % 0; Reactive Lymphocytes 0
--- NOTE | 2020-05-20 06:39 | NUR ---
RECEIVED CALL FROM [employer] FOR THE CRITICAL WBC 30.4. WILL PASS IT TO DAY SHIFT RN. CONTINUE TO MONITOR.
--- NOTE | 2020-05-20 06:40 | NUR ---
PATIENT'S CR 1.67 WHICH IS GREATER THAN 1.49, CALLED DAIRY HUSBANDMANANGELITA HAWKINS TO CONFIRM THAT PATIENT WILL NOT HAVE CTA DONE TODAY. CONTINUE TO MONITOR.
--- NOTE | 2020-05-20 07:15 | NUR ---
PT AWAKE, ALERT, ORIENTEDx3 DENIES ANY DISCOMFORT AT MOMENT. PT ON 1:1 SUPERVISION. CALL LIGHT WITHIN REACH. WILL CONTINUE TO MONITOR.
[2020-05-20] MEDS: ALBUTEROL SULF 2.5 MG/0.5ML(0.5%) NEB SOLN NEB SCH ×5 (07:16→23:07)
[2020-05-20] MEDS: IPRATROPIUM BROM 0.5 MG/2.5ML INH SOL NEB SCH ×5 (07:16→23:07)
[2020-05-20 07:24] LABS: Lymphocytes % (manual) 7 (10.0-50.0); Monocytes % (manual) 4 (0-12)
[2020-05-20 09:00] VITALS: BP 146/63
[2020-05-20] MEDS ORDERED: ENOXAPARIN SOD 80 MG/0.8ML SYRINGE SC SCH (10:00)
--- NOTE | 2020-05-20 10:00 | NUR ---
RADIOLOGY DEPT. CONSULTED FOR HD CATHETER REMOVAL. RADIOLOGY DEPT. AWARE.
[2020-05-20] MEDS: CHOLECALCIFEROL (VITD3) 1,000UNIT=25mCg TAB PO SCH (10:01)
[2020-05-20] MEDS: cefTRIAXone 1GM/50ML D5W 50 ML IV SCH ×2 (10:01→22:02)
[2020-05-20] MEDS: Glucerna Carbsteady SHAKE Vanilla 8oz PO SCH ×3 (10:01→18:15)
[2020-05-20] MEDS: PANTOPRAZOLE 40 MG TAB PO SCH (10:01)
[2020-05-20] MEDS: NICOTINE 21MG/24 HR TOPICAL PATCH TD SCH (10:02)
[2020-05-20] MEDS: AZITHROMYCIN 250 MG TAB PO SCH (10:02)
[2020-05-20] MEDS: SERTRALINE HCL 50 MG TAB PO SCH (10:02)
[2020-05-20] MEDS: METOPROLOL TARTRATE 25 MG TAB PO SCH ×2 (10:02→22:01)
[2020-05-20] MEDS: ENOXAPARIN SOD 80 MG/0.8ML SYRINGE SC SCH (10:03)
--- NOTE | 2020-05-20 11:00 | NUR ---
DR. RAWLS AT BEDSIDE FOR JUAN J HD CATHETER REMOVAL. PROCEDURE ASSIST. CATHETER TIP SENT TO LAB. TEGADERM APPLIED TO SITE, NO ACTIVE BLEEDING AT MOMENT. PT TOLERATED PROCEDURE WELL. WILL CONTINUE TO MONITOR.
[2020-05-20] MEDS: LINEZOLID 600MG TABLET PO SCH ×2 (12:02→22:01)
[2020-05-20 13:00] VITALS: BP 144/81
[2020-05-20 17:00] VITALS: BP 151/88
--- NOTE | 2020-05-20 19:34 | NUR ---
RECEIVED PATIENT FROM DAY SHIFT RN. PATIENT RESTING IN BED. NO S/S OF DISTRESS NOTED. C/O HEADACHE @ 07/15. AND PATIENT PREFERRED NORCO FOR NOW. MEDICATED PATIENT ORDERED. REORIENTED PATIENT SITUATION. PATIENT IS ON 10L/OXYMIZER WITH O2 SAT @ 92 %. POC INSTRUCTED AND ENCOURAGED PATIENT TO CALL FOR CUSTOMER ACQUISITION MANAGER IF NEEDED. BED IN LOWEST POSITION WITH SIDE RAILS UP X 2. CALL BECKETT WITHIN REACH. ALARM ON. SITTER AT BEDSIDE FOR SAFETY. CONTINUE TO MONITOR FOR CHANGES Q1H AND PRN.
--- NOTE | 2020-05-20 20:25 | NUR ---
REASSESSED PAIN 04/14. PATIENT STATED COMFORTABLE NOW. CONTINUE TO MONITOR.
--- NOTE | 2020-05-20 22:08 | NUR ---
SCHEDULED MEDICATION GIVEN ORDERED. PATIENT SWALLOWED WELL. O2 SAT 90% ON 10L/OXYMIZER, CONTINUE TO MONITOR.
--- NOTE | 2020-05-20 23:07 | NUR ---
Respiratory note: Scheduled medneb tx not administered, pt sleeping at this time. HR 88, RR 20, SPO2 95% on 10lpm oxymizer. No s/s of distress.
[2020-05-20 23:10] VITALS: BP 146/88
--- NOTE | 2020-05-21 01:22 | NUR ---
PATIENT SLEEPING. NO S/S OF DISTRESS NOTED. SITTER AT BEDSIDE FOR SAFETY. CONTINUE CARE.
[2020-05-21] MEDS: hydrALAZINE HCL 20 MG/ML VL IV PRN ×2 (01:51→17:00)
--- NOTE | 2020-05-21 01:52 | NUR ---
PATIENT WOKE UP FOR URINAL, REASSESSED BP 164/85, HR 82. PRN BP MEDICATION GIVEN ORDERED. CONTINUE TO MONITOR.
--- NOTE | 2020-05-21 02:50 | NUR ---
REASSESSED PATIENT, BP 154/95. HR 84. CONTINUE TO MONITOR.
[2020-05-21] MEDS: HYDROcodone-ACET 5/325MG TAB PO PRN ×2 (03:48→17:00)
--- NOTE | 2020-05-21 03:48 | NUR ---
PATIENT C/O HEADACHE @ 07/15 AND PREFERRED NORCO. MEDICATED PATIENT ORDERED. TEMP 99.8. COOLING MEASURE APPLIED AND ICE PACK APPLIED. CONTINUE TO MONITOR
[2020-05-21] MEDS: LORazepam 2MG/ML-1ML VIAL IV PRN ×2 (04:38→11:21)
--- NOTE | 2020-05-21 04:38 | NUR ---
REASSESSED PATIENT, HEADACHE DOWN TO 4/10, TEMP 98.5. PATIENT FEELING BETTER BUT ANXIETY. MEDICATED PATIENT ORDERED. CONTINUE TO MONITOR.
[2020-05-21 04:43] VITALS: BP 153/90
[2020-05-21] MEDS: busPIRone HCL 10 MG TAB PO SCH ×3 (05:40→22:00)
[2020-05-21] MEDS: GABAPENTIN 400 MG CAP PO SCH ×3 (05:40→22:00)
[2020-05-21] MEDS: BACLOFEN 10 MG TAB PO SCH ×2 (05:40→13:47)
--- NOTE | 2020-05-21 05:59 | NUR ---
MEDICATED PATIENT SCHEDULED AND ORDERED. PATIENT SWALLOWED WELL. O2 SAT 92% ON 10L/OXYMIZER, CONTINUE TO MONITOR.
[2020-05-21 06:34] LABS: Hematocrit 38.6 % (41.0-53.0); Hemoglobin 12.9 g/dL (13.5-17.5); Mean Corpuscular Hemoglobin 28.3 pg (28.0-32.0); Mean Corpuscular Hgb Conc. 33.3 g/dL (32.0-36.0); Mean Corpuscular Volume 84.9 fL (80.0-100.0); Platelet Count (auto) 242 10^3/uL (140-450); Red Blood Cells 4.55 10^6/uL (4.5-5.90); Red Cell Distribution Width 15.7 % (11.8-14.3); White Blood Cell 18.2 10^3/uL (4.4-10.8)
[2020-05-21 06:44] LABS: Band Neutrophils % (manual) 0; Basophils % (manual) 0 (0.0-2.0); Blast Cells 0; Metamyelocytes % 0; Myelocytes % 0; Promyelocytes % 0; Reactive Lymphocytes 0
[2020-05-21 06:55] LABS: Eosinophils % (manual) 3 (0-7); Lymphocytes % (manual) 7 (10.0-50.0); Monocytes % (manual) 3 (0-12)
[2020-05-21 06:56] LABS: BUN/Creatinine Ratio 25.3; Calcium 8.7 mg/dL (8.5-10.1); Potassium 3.7 mmol/L (3.5-5.1)
[2020-05-21] MEDS: IPRATROPIUM BROM 0.5 MG/2.5ML INH SOL NEB SCH ×5 (06:58→22:07)
[2020-05-21] MEDS: ALBUTEROL SULF 2.5 MG/0.5ML(0.5%) NEB SOLN NEB SCH ×5 (06:58→22:07)
--- NOTE | 2020-05-21 07:10 | NUR ---
PT ON 1:1 SUPERVISION. AWAKE, ALERT, ORIENTEDx3 DENIES DISCOMFORT AT MOMENT. WILL CONTINUE TO MONITOR.
[2020-05-21 09:00] VITALS: BP 145/81
--- NOTE | 2020-05-21 10:30 | NUR ---
Pt declined PT tx citing fatigue & not feeling well last night. He continued to refuse following encouragement. RN informed. Addendum: 05/21/20 at 1158 by Robert Griffin AUDIO PRODUCTION MANAGER Amended: Links added.
[2020-05-21] MEDS: cefTRIAXone 1GM/50ML D5W 50 ML IV SCH ×2 (11:21→22:00)
[2020-05-21] MEDS: ENOXAPARIN SOD 80 MG/0.8ML SYRINGE SC SCH (11:21)
[2020-05-21] MEDS: PANTOPRAZOLE 40 MG TAB PO SCH (11:22)
[2020-05-21] MEDS: NICOTINE 21MG/24 HR TOPICAL PATCH TD SCH (11:22)
[2020-05-21] MEDS: CHOLECALCIFEROL (VITD3) 1,000UNIT=25mCg TAB PO SCH (11:22)
[2020-05-21] MEDS: METOPROLOL TARTRATE 25 MG TAB PO SCH ×2 (11:22→22:00)
[2020-05-21] MEDS: AZITHROMYCIN 250 MG TAB PO SCH (11:23)
[2020-05-21] MEDS: LINEZOLID 600MG TABLET PO SCH ×2 (11:23→22:00)
[2020-05-21] MEDS: SERTRALINE HCL 50 MG TAB PO SCH (11:23)
[2020-05-21] MEDS: Glucerna Carbsteady SHAKE Vanilla 8oz PO SCH ×3 (11:24→18:02)
--- NOTE | 2020-05-21 12:56 | NUR ---
Nutrition Followup/Consult Notes: Pt wt is 71.8 kg Pt was alert and oriented at time of rounds. pt reports appetite is so-so. Appetite is poor aeb pt po intake avg of 43% x 3 days per RN note. Pt denies any GI issues Est Energy needs BW 77 [id number] kcals (30-35 kcal/kgBW), Est Protein needs: 92-107 gms/day (1.2-1.4 gm/kgBW r/t HD). Will continue to monitor and reassess prn. LABS: BUN 37H, Alb 2.6L, Creat 1.46H, GLUC 123H GI: Last BM noted on 05/09 per RN doc BS: 19 low risk Refer to wound assessment report for full details. PES: Altered nutrition related labs r/t to current medical condition aeb pt with elevated RFTs, hyperglycemia Comments 1) Consider CCHO 60 gm if blood glu continues to be elev along with current diet 2) Consider low TG along with current diet 3) Continue current plan of care
[2020-05-21 13:00] VITALS: BP 137/82
[2020-05-21] MEDS ORDERED: FUROSEMIDE 40 MG/4 ML VIAL IV ONE (13:00)
--- NOTE | 2020-05-21 13:15 | NUR ---
Pt refused PT tx for the 2nd time today citing fatigue. RN informed. RN & this ETHNOLOGY PROFESSOR attempted to encourage pt to participate. Addendum: 05/21/20 at 1403 by Robert Griffin ETHNOLOGY PROFESSOR Amended: Links added.
[2020-05-21 17:00] VITALS: BP 151/87
--- NOTE | 2020-05-21 19:20 | NUR ---
RECEIVED PATIENT FROM DAY SHIFT RN. PATIENT RESTING IN BED WITH EYES CLOSED. NO S/S OF DISTRESS AND NOTED. PATIENT IS ON 10L/OXYMIZER WITH O2 SAT @ 96%. POC INSTRUCTED AND ENCOURAGED PATIENT TO CALL FOR RESEARCH AIDE IF NEEDED. BED IN LOWEST POSITION WITH SIDE RAILS UP X 2. CALL BECKETT WITHIN REACH. ALARM ON. SITTER AT BEDSIDE FOR SAFETY. CONTINUE TO MONITOR FOR CHANGES Q1H AND PRN.
--- NOTE | 2020-05-21 19:50 | NUR ---
RT AT BEDSIDE FOR BREATHING TREATMENT.
[2020-05-21 20:08] VITALS: BP 156/75
[2020-05-21] MEDS: LORazepam 0.5 MG TAB PO PRN (20:18)
--- NOTE | 2020-05-21 20:19 | NUR ---
PATIENT EXPRESSED ANXIETY, MEDICATION PATIENT ORDERED. REORIENTED PATIENT SITUATION, AND REEDUCATED PATIENT ON POC. SITTER AT BEDSIDE FOR SAFETY. CONTINUE TO MONITOR.
[2020-05-21 22:00] VITALS: BP 124/76
--- NOTE | 2020-05-21 23:00 | NUR ---
REASSESSED BP 146/82, HR 99. CONTINUE TO MONITOR.
--- NOTE | 2020-05-22 01:47 | NUR ---
PATIENT SLEEPING. NO S/S OF DISTRESS NOTED. O2 SAT 93% ON 10L/OXYMIZER. CONTINUE TO MONITOR.
[2020-05-22] MEDS: HYDROcodone-ACET 5/325MG TAB PO PRN ×4 (04:45→23:34)
--- NOTE | 2020-05-22 04:46 | NUR ---
PATIENT WOKE UP AND C/O PAIN @ 04/14. MEDICATED PATIENT ORDERED. CONTINUE TO MONITOR.
[2020-05-22 05:00] VITALS: BP 164/99
[2020-05-22 05:38] LABS: Hematocrit 40.1 % (41.0-53.0); Hemoglobin 13.1 g/dL (13.5-17.5); Mean Corpuscular Hemoglobin 27.9 pg (28.0-32.0); Mean Corpuscular Hgb Conc. 32.7 g/dL (32.0-36.0); Mean Corpuscular Volume 85.1 fL (80.0-100.0); Platelet Count (auto) 299 10^3/uL (140-450); Red Blood Cells 4.72 10^6/uL (4.5-5.90); Red Cell Distribution Width 15.6 % (11.8-14.3); White Blood Cell 19.8 10^3/uL (4.4-10.8)
[2020-05-22 05:53] LABS: Basophils % (manual) 0 (0.0-2.0); Blast Cells 0; Metamyelocytes % 0; Myelocytes % 0; Promyelocytes % 0; Reactive Lymphocytes 0
[2020-05-22 05:59] LABS: Potassium 3.8 mmol/L (3.5-5.1)
[2020-05-22] MEDS: busPIRone HCL 10 MG TAB PO SCH ×3 (06:06→21:55)
[2020-05-22] MEDS: GABAPENTIN 400 MG CAP PO SCH ×3 (06:06→21:56)
[2020-05-22] MEDS: LORazepam 0.5 MG TAB PO PRN ×3 (06:07→22:03)
--- NOTE | 2020-05-22 06:10 | NUR ---
PATIENT'S BP 164/99, TRIED TO GIVE PRN BP MEDICATION. PATIENT REFUSED TO HAVE IT. EDUCATED PATIENT ON THE IMPORTANCE TO HIS BP, PATIENT REFUSED AND STATED " I DON'T NEED IT". WILL PASS IT ON TO DAY SHIFT RN. CONTINUE TO MONITOR.
[2020-05-22 06:13] LABS: BUN/Creatinine Ratio 27.5
[2020-05-22] MEDS: IPRATROPIUM BROM 0.5 MG/2.5ML INH SOL NEB SCH ×5 (07:17→22:32)
[2020-05-22] MEDS: ALBUTEROL SULF 2.5 MG/0.5ML(0.5%) NEB SOLN NEB SCH ×5 (07:18→22:33)
[2020-05-22 08:00] LABS: Band Neutrophils % (manual) 2; Eosinophils % (manual) 1 (0-7); Lymphocytes % (manual) 4 (10.0-50.0); Monocytes % (manual) 4 (0-12)
[2020-05-22] MEDS: Glucerna Carbsteady SHAKE Vanilla 8oz PO SCH ×3 (08:00→18:00)
[2020-05-22 09:00] VITALS: BP 144/84
[2020-05-22] MEDS: PANTOPRAZOLE 40 MG TAB PO SCH (10:18)
[2020-05-22] MEDS: AZITHROMYCIN 250 MG TAB PO SCH (10:19)
[2020-05-22] MEDS: CHOLECALCIFEROL (VITD3) 1,000UNIT=25mCg TAB PO SCH (10:19)
[2020-05-22] MEDS: SERTRALINE HCL 50 MG TAB PO SCH (10:19)
[2020-05-22] MEDS: METOPROLOL TARTRATE 25 MG TAB PO SCH ×2 (10:20→21:55)
[2020-05-22] MEDS: cefTRIAXone 1GM/50ML D5W 50 ML IV SCH ×2 (10:22→21:56)
[2020-05-22] MEDS: LINEZOLID 600MG TABLET PO SCH ×2 (10:22→21:57)
[2020-05-22] MEDS: ENOXAPARIN SOD 80 MG/0.8ML SYRINGE SC SCH (10:22)
[2020-05-22] MEDS: FUROSEMIDE 40 MG/4 ML VIAL IV SCH (10:30)
[2020-05-22] MEDS: NICOTINE 21MG/24 HR TOPICAL PATCH TD SCH (10:30)
--- NOTE | 2020-05-22 10:50 | NUR ---
PT NOTES RE: MEDICAL MARIJUANA PER PT, HE CAME TO ER WITH HIS 2 BAGS OF MEDICAL MARIJUANA AND HAD ASKED THE ER NURSE TO LEAVE THEM IN HIS BELONGINGS BAG. I SPOKE TO PT'S DAUGHTER, NAI, AND SHE STATED THAT THE MARIJUANA IS AT HOME. PT IS INFORMED AND WAS ADVISED TO CALL NAI TO VERIFY INFORMATION.
--- NOTE | 2020-05-22 11:23 | NUR ---
REPORT GIVEN TO [facility] CABA RN.
--- NOTE | 2020-05-22 11:24 | NUR ---
PAGED DR OSMAN RE ORDER FOR [facility] TRANSFER
[2020-05-22 13:00] VITALS: BP 136/91
--- NOTE | 2020-05-22 15:06 | NUR ---
PATIENT REFUSED PT. Addendum: 05/22/20 at 1506 by KANDIS MCLAIN PTT Amended: Links added.
[2020-05-22 16:33] VITALS: BP 132/78
--- NOTE | 2020-05-22 19:30 | NUR ---
Opening Shift Note Assumed care of patient, awake and alert. No S/S of distress/SOB or pain. Instructed on POC and to call for assist PRN, will continue to monitor for changes Q1hr and PRN.
--- NOTE | 2020-05-22 19:45 | NUR ---
While assessing patient's back patient became short of breath, patient's O2 saturation reduced to 70%. Increased patient's O2 to 15L oxymizer, patient currently at 92%. Will continue to monitor.
[2020-05-22] MEDS ORDERED: ENOXAPARIN SOD 80 MG/0.8ML SYRINGE SC SCH (22:00)
[2020-05-23] MEDS: TEMAZEPAM 15 MG CAP PO PRN ×2 (01:22→22:40)
--- NOTE | 2020-05-23 04:40 | NUR ---
Patient trying to get out of bed to use the bathroom. Sitter and RN informed patient he needs to remain in bed with oxygen. Patient offered a bedpan or bedside commode. Patient removed his oxygen and 02 censor. Patient began to desat to 65%. Patient returned to 90% after five minutes. Called RT for a breathing treatment.
[2020-05-23] MEDS: ALBUTEROL SULF 2.5 MG/0.5ML(0.5%) NEB SOLN NEB SCH ×5 (04:48→22:28)
[2020-05-23] MEDS: IPRATROPIUM BROM 0.5 MG/2.5ML INH SOL NEB SCH ×5 (04:48→22:28)
[2020-05-23 05:00] VITALS: BP 127/91
[2020-05-23 05:18] LABS: Basophils # (auto) 0.1 10 ^3/uL (0-0.2); Basophils % (auto) 0.9 % (0.0-2.0); Eosinophils # (auto) 0.4 10 ^3/uL (0-0.8); Eosinophils % (auto) 2.4 % (0.0-7.0); Hematocrit 40.7 % (41.0-53.0); Hemoglobin 13.4 g/dL (13.5-17.5); Lymphocytes # (auto) 1.9 10 ^3/uL (0.4-5.4); Mean Corpuscular Hemoglobin 27.9 pg (28.0-32.0); Mean Corpuscular Hgb Conc. 32.8 g/dL (32.0-36.0); Monocytes # (auto) 0.7 10 ^3/uL (0-1.3); Monocytes % (auto) 4.3 % (0.0-12.0); Neutrophils # (auto) 13.8 10 ^3/uL (1.6-8.6); Neutrophils % (auto) 81.4 % (37.0-80.0); Nucleated Red Blood Cells % 0.1 %; Platelet Count (auto) 312 10^3/uL (140-450); Red Blood Cells 4.79 10^6/uL (4.5-5.90); Red Cell Distribution Width 15.5 % (11.8-14.3); White Blood Cell 16.9 10^3/uL (4.4-10.8)
[2020-05-23] MEDS: HYDROcodone-ACET 5/325MG TAB PO PRN ×2 (06:03→13:21)
[2020-05-23] MEDS: busPIRone HCL 10 MG TAB PO SCH ×3 (06:03→21:30)
[2020-05-23] MEDS: GABAPENTIN 400 MG CAP PO SCH ×3 (06:04→21:30)
--- NOTE | 2020-05-23 07:33 | NUR ---
RECEIVED PATIENT AWAKE, ALERT AND ORIENTED X4. PATIENT DENIES SOB AND PAIN, NO S/S DISTRESS NOTED AT THIS TIME. PLAN OF CARE DISCUSSED. PATIENT IS CURRENTLY ON 15L VIA OXYMIZER AND SATING AT 96%. PATIENT ADVISED TO CALL FOR ASSISTANCE PRN. BED IN LOW AND LOCKED POSITION, CALL LIGHT AND PHONE WITHIN REACH. WILL CONTINUE TO MONITOR Q1HR AND PRN. SITTER AT BEDSIDE.
[2020-05-23 08:00] VITALS: BP 147/72
[2020-05-23 09:00] VITALS: BP 147/72
[2020-05-23] MEDS: ENOXAPARIN SOD 60 MG/0.6 ML SYRINGE SC SCH ×2 (09:55→21:30)
[2020-05-23] MEDS: FUROSEMIDE 40 MG/4 ML VIAL IV SCH (09:56)
[2020-05-23] MEDS: CHOLECALCIFEROL (VITD3) 1,000UNIT=25mCg TAB PO SCH (09:57)
[2020-05-23] MEDS: cefTRIAXone 1GM/50ML D5W 50 ML IV SCH ×2 (09:57→21:29)
[2020-05-23] MEDS: Glucerna Carbsteady SHAKE Vanilla 8oz PO SCH ×3 (09:57→18:00)
[2020-05-23] MEDS: NICOTINE 21MG/24 HR TOPICAL PATCH TD SCH (09:58)
[2020-05-23] MEDS: SERTRALINE HCL 50 MG TAB PO SCH (09:59)
[2020-05-23] MEDS: AZITHROMYCIN 250 MG TAB PO SCH (09:59)
[2020-05-23] MEDS: PANTOPRAZOLE 40 MG TAB PO SCH (10:00)
[2020-05-23] MEDS: METOPROLOL TARTRATE 25 MG TAB PO SCH ×2 (10:00→21:30)
[2020-05-23] MEDS: LINEZOLID 600MG TABLET PO SCH ×2 (10:34→21:30)
[2020-05-23] MEDS: LORazepam 0.5 MG TAB PO PRN ×2 (10:34→20:43)
--- NOTE | 2020-05-23 11:49 | NUR ---
PT Pt declined Physical Therapy. Signed: 05/23/20 at 1150 by RICHIE MEDRANO PTT <Co-Signature Required> Co-Signed: 05/23/20 at 1150 by Irwin Evans PT Addendum: 05/23/20 at 1151 by RICHIE MEDRANO PTT Amended: Links added.
[2020-05-23 12:28] VITALS: BP 141/78
--- NOTE | 2020-05-23 14:20 | NUR ---
TITRATED PT TO 8 LITERS OXYMIZER. SPO2 96%.
[2020-05-23 16:40] VITALS: BP 131/70
--- NOTE | 2020-05-23 18:42 | NUR ---
MED NEB TX NOT ADMINISTERED AT THIS TIME. PT EXPERIENCING V-TACH. HR CURRENTLY 110, SPO2 90% ON 10L OXYMIZER. WILL CONTINUE WITH NEXT SCHEDULED TX.
--- NOTE | 2020-05-23 18:45 | NUR ---
NOTED RUNS OF V-TACH AND TELE MONITOR. PATIENT REPORTS GENERALIZED PAIN AND DENIES CHEST PAIN. 12 LEAD EKG DONE, HOSPITALIST PAGED AND AWAITING CALL BACK
--- NOTE | 2020-05-23 19:15 | NUR ---
ENDORSE CARE TO NOC SHIFT RN.
[2020-05-23] MEDS: HYDROcodone-ACET 10/325MG TAB PO PRN (20:11)
--- NOTE | 2020-05-23 20:11 | NUR ---
OPEN NOTE Assumed care of pt. sitter at bedside. pt awake and alert. upon introducing self to pt, pt appears upset and waves me off. pt does not appear in any respiratory distress, calls nurse liar referencing previous experience with previous nurses not doing "as they say", in the timeframe in which they say; this was translated via sitter. this nurse assured pt that this nurse will perform tasks in timely manner and to verbalize needs to sitter or use of call light. bed is locked, low and 2x rails up. call light in reach. this nurse to round q1hr and prn. pt encouraged to call as needed. pt appears in better spirits upon this nurse leaving the room.
--- NOTE | 2020-05-23 20:25 | NUR ---
MELISSA HOSPITALIST spoke with MD Clifford in regards to pt run of vtach during dayshift. orders received, read back and will administer as such as needed.
[2020-05-23] MEDS ORDERED: METOPROLOL TARTRATE 1MG/1ML-5ML VIAL IV SCH (20:30)
[2020-05-23 22:00] VITALS: BP 116/75
--- NOTE | 2020-05-23 23:18 | NUR ---
paged respiratory after sitter notified this nurse of pt desaturation into the low 80's. pt on 10L oxymizer upon this nurse entering room. pt awake, alert and denied any distress. no s/s distress noted. pt sat up high fowlers, rate of o2 increased to 12L. saturation remained in the mid 80's. RT came in placed pt on non rebreather and saturation is presently 95% at 15L as set by RT, this nurse will continue to monitor and titrate as appropriate. pt further denies any complaints. call light in reach, this nurse to round q1hr and prn.
[2020-05-24 05:00] VITALS: BP 144/74
[2020-05-24] MEDS: LORazepam 0.5 MG TAB PO PRN ×2 (05:25→12:42)
[2020-05-24] MEDS: IPRATROPIUM BROM 0.5 MG/2.5ML INH SOL NEB SCH ×5 (06:15→22:00)
[2020-05-24] MEDS: ALBUTEROL SULF 2.5 MG/0.5ML(0.5%) NEB SOLN NEB SCH ×5 (06:15→22:00)
[2020-05-24] MEDS: GABAPENTIN 400 MG CAP PO SCH ×3 (06:17→21:26)
[2020-05-24] MEDS: busPIRone HCL 10 MG TAB PO SCH ×3 (06:17→21:25)
[2020-05-24 06:43] LABS: Basophils # (auto) 0.1 10 ^3/uL (0-0.2); Basophils % (auto) 0.8 % (0.0-2.0); Eosinophils # (auto) 0.3 10 ^3/uL (0-0.8); Eosinophils % (auto) 1.8 % (0.0-7.0); Hematocrit 38.7 % (41.0-53.0); Hemoglobin 12.8 g/dL (13.5-17.5); Lymphocytes # (auto) 1.6 10 ^3/uL (0.4-5.4); Lymphocytes % (auto) 9.4 % (10.0-50.0); Mean Corpuscular Hemoglobin 28.1 pg (28.0-32.0); Mean Corpuscular Hgb Conc. 33.1 g/dL (32.0-36.0); Monocytes # (auto) 0.7 10 ^3/uL (0-1.3); Monocytes % (auto) 4.1 % (0.0-12.0); Neutrophils % (auto) 83.9 % (37.0-80.0); Nucleated Red Blood Cells % 0.1 %; Platelet Count (auto) 342 10^3/uL (140-450); Red Blood Cells 4.55 10^6/uL (4.5-5.90); Red Cell Distribution Width 15.7 % (11.8-14.3); White Blood Cell 16.7 10^3/uL (4.4-10.8)
[2020-05-24 06:56] LABS: Calcium 8.8 mg/dL (8.5-10.1); Potassium 3.5 mmol/L (3.5-5.1)
[2020-05-24 06:58] LABS: BUN/Creatinine Ratio 28.7
[2020-05-24] MEDS: Glucerna Carbsteady SHAKE Vanilla 8oz PO SCH ×3 (07:59→17:12)
[2020-05-24 08:45] VITALS: BP 126/75
[2020-05-24] MEDS: FUROSEMIDE 40 MG/4 ML VIAL IV SCH (10:14)
[2020-05-24] MEDS: cefTRIAXone 1GM/50ML D5W 50 ML IV SCH ×2 (10:15→21:25)
[2020-05-24] MEDS: PANTOPRAZOLE 40 MG TAB PO SCH (10:15)
[2020-05-24] MEDS: CHOLECALCIFEROL (VITD3) 1,000UNIT=25mCg TAB PO SCH (10:15)
[2020-05-24] MEDS: METOPROLOL TARTRATE 25 MG TAB PO SCH ×2 (10:15→21:25)
[2020-05-24] MEDS: ENOXAPARIN SOD 60 MG/0.6 ML SYRINGE SC SCH ×2 (10:15→21:26)
[2020-05-24] MEDS: AZITHROMYCIN 250 MG TAB PO SCH (10:15)
[2020-05-24] MEDS: SERTRALINE HCL 50 MG TAB PO SCH (10:15)
[2020-05-24] MEDS: LINEZOLID 600MG TABLET PO SCH ×2 (10:15→21:40)
[2020-05-24] MEDS: NICOTINE 21MG/24 HR TOPICAL PATCH TD SCH (10:16)
[2020-05-24] MEDS: HYDROcodone-ACET 10/325MG TAB PO PRN ×2 (10:21→18:12)
[2020-05-24] MEDS ORDERED: BUMETANIDE 2.5mg/10ml (0.25 mg/ml) INJ IV ONE (11:15)
[2020-05-24 13:36] VITALS: BP 110/69
[2020-05-24] MEDS ORDERED: ACETYLCYSTEINE ORAL for CIN 20%(200MG/ML) 4ML PO ONE (14:00)
--- NOTE | 2020-05-24 15:09 | NUR ---
Nutrition Followup Notes: Pt wt is 68.6 kg Pt was alert and oriented at time of rounds. Pt is with a Renal Standard diet, appetite is improved and adequate aeb avg of 75% PO intake over 3 meals per RN doc. Will continue to monitor PO status, skin status, pertinent labs and weight trends. Will f/u in 3-5 days. Est Energy needs BW 77 [id number] kcals (30-35 kcal/kgBW), Est Protein needs: 92-107 gms/day (1.2-1.4 gm/kgBW r/t HD). Will continue to monitor and reassess prn. LABS: BUN 47H, Creat 1.64H, GFR 45 L, GLUC 123 H, Alb 2.6 L GI: Pt had 1 BM on 05/21 per RN doc BS: 18 mod risk Refer to wound assessment report for full details. PES: Altered nutrition related labs r/t to current medical condition aeb pt with elevated RFTs, hyperglycemia Comments 1) Consider CCHO 60 gm if blood glu continues to be elev along with current diet 2) Consider low TG along with current diet 3) Continue current plan of care
[2020-05-24 16:50] VITALS: BP 111/68
[2020-05-24] MEDS ORDERED: BUMETANIDE 2.5mg/10ml (0.25 mg/ml) INJ IV SCH (18:00)
--- NOTE | 2020-05-24 19:05 | NUR ---
Opening Shift Note Assumed care of patient, awake and alert. No S/S of distress/SOB or pain. Patient with HOB >30, eating dinner. Instructed on POC and to call for assist PRN, will continue to monitor for changes Q1hr and PRN. Sitter at bedside.
[2020-05-24 20:47] VITALS: BP 111/68
[2020-05-24] MEDS: TEMAZEPAM 15 MG CAP PO PRN (21:26)
[2020-05-24] MEDS: ACETYLCYSTEINE ORAL for CIN 20%(200MG/ML) 4ML PO SCH (21:41)
[2020-05-24 22:00] VITALS: BP 122/81
[2020-05-25] MEDS: LORazepam 0.5 MG TAB PO PRN ×3 (01:26→20:29)
--- NOTE | 2020-05-25 01:26 | NUR ---
Anxiety Patient c/o feeling anxious and started to desat maintain in the low 80's. Patient repositioned to HOB >90, given Ativan PRN, PRN breathing treatment given by RT. Patient is sating in the low 90's now.
[2020-05-25] MEDS: NOREPINEPHRINE 8 MG/250ML KIT 250 ML IV SCH (01:30)
[2020-05-25] MEDS: ALBUTEROL SULF 2.5 MG/0.5ML(0.5%) NEB SOLN NEB SCH ×7 (01:30→22:14)
[2020-05-25] MEDS: IPRATROPIUM BROM 0.5 MG/2.5ML INH SOL NEB SCH ×7 (01:30→22:14)
[2020-05-25] MEDS: fentaNYL Drip 2500mCg/250mlNS 250 ML IV SCH (02:00)
[2020-05-25] MEDS: HYDROcodone-ACET 10/325MG TAB PO PRN ×2 (02:22→09:25)
--- NOTE | 2020-05-25 02:22 | NUR ---
Pain patient c/o pain 9/10 to generalized body, pain medication administered.
--- NOTE | 2020-05-25 03:22 | NUR ---
Re Pain Patient resting with eyes closed, no sign of pain or distress.
[2020-05-25 05:00] VITALS: BP 120/70
[2020-05-25 05:30] LABS: Basophils # (auto) 0.2 10 ^3/uL (0-0.2); Basophils % (auto) 1.1 % (0.0-2.0); Eosinophils # (auto) 0.3 10 ^3/uL (0-0.8); Eosinophils % (auto) 2.1 % (0.0-7.0); Hemoglobin 12.3 g/dL (13.5-17.5); Lymphocytes # (auto) 1.8 10 ^3/uL (0.4-5.4); Lymphocytes % (auto) 11.9 % (10.0-50.0); Mean Corpuscular Hemoglobin 28.3 pg (28.0-32.0); Mean Corpuscular Hgb Conc. 33.2 g/dL (32.0-36.0); Mean Corpuscular Volume 85.2 fL (80.0-100.0); Monocytes # (auto) 0.7 10 ^3/uL (0-1.3); Monocytes % (auto) 4.7 % (0.0-12.0); Neutrophils # (auto) 12.5 10 ^3/uL (1.6-8.6); Neutrophils % (auto) 80.2 % (37.0-80.0); Nucleated Red Blood Cells % 0.2 %; Platelet Count (auto) 339 10^3/uL (140-450); Red Blood Cells 4.34 10^6/uL (4.5-5.90); Red Cell Distribution Width 15.4 % (11.8-14.3); White Blood Cell 15.6 10^3/uL (4.4-10.8)
[2020-05-25 05:48] LABS: BUN/Creatinine Ratio 27.7; Calcium 8.6 mg/dL (8.5-10.1); Potassium 3.2 mmol/L (3.5-5.1)
[2020-05-25 05:50] LABS: INR 1.11 (0.9-1.15); Partial Thromboplastin Time 31.3 sec (23.64-32.05)
[2020-05-25] MEDS: busPIRone HCL 10 MG TAB PO SCH ×2 (05:52→16:10)
[2020-05-25] MEDS: GABAPENTIN 400 MG CAP PO SCH ×3 (05:52→22:00)
[2020-05-25] MEDS: Glucerna Carbsteady SHAKE Vanilla 8oz PO SCH ×3 (07:44→16:56)
[2020-05-25] MEDS ORDERED: SODIUM CHLORIDE 0.9% 1,000 ML IV ONE (09:15)
--- NOTE | 2020-05-25 09:25 | NUR ---
PT PLACED ON 15L NRB WITH 8L OXYMIZER DUE TO PT DESATING TO 77%. RN MADE AWARE.
[2020-05-25] MEDS: CHOLECALCIFEROL (VITD3) 1,000UNIT=25mCg TAB PO SCH (09:40)
[2020-05-25] MEDS: PANTOPRAZOLE 40 MG TAB PO SCH (09:40)
[2020-05-25] MEDS: METOPROLOL TARTRATE 25 MG TAB PO SCH ×2 (09:40→22:00)
[2020-05-25] MEDS: ACETYLCYSTEINE ORAL for CIN 20%(200MG/ML) 4ML PO SCH ×2 (09:40→22:00)
[2020-05-25] MEDS: cefTRIAXone 1GM/50ML D5W 50 ML IV SCH (09:40)
[2020-05-25] MEDS: SERTRALINE HCL 50 MG TAB PO SCH (09:40)
[2020-05-25] MEDS: NICOTINE 21MG/24 HR TOPICAL PATCH TD SCH (09:41)
[2020-05-25] MEDS: LINEZOLID 600MG TABLET PO SCH (09:41)
[2020-05-25] MEDS: ENOXAPARIN SOD 60 MG/0.6 ML SYRINGE SC SCH (09:41)
--- NOTE | 2020-05-25 11:25 | NUR ---
Taken to tutorial laboratory supervisor for heart cath. Consents signed. Checklist completed.
--- NOTE | 2020-05-25 11:48 | NUR ---
Respiratory note: PATIENT SEEN FOR HYPOXIA AND STAT BLOOD GAS. PATIENT WAS FOUND ON 6LPM OXYMIZER AND 15LPM NRB MASK WITH SPO2 AT 94%. PATIENT WAS ALERT/ORIENTED AND RELAXED, AND SHOWED NO SIGNS/SYMPTOMS OF RESPIRATORY DISTRESS. PO2 WAS 89.9 AND RESULTS WERE REPORTED TO JANET FLORIAN. PATIENT WAS REMOVED FROM OXYMIZER AND LEFT ON NRB, SPO2 MAINTAINED AT 96% AND PATIENT REMAINED ALERT/ORIENTED AND IN NO DISTRESS.
--- NOTE | 2020-05-25 11:49 | NUR ---
NOTE: RECEIVED PT IN AUTO PARTS DELIVERY DRIVER ON NON-REBREATHER MASK AT 15LPM AND OXYMIZER AT 6LPM. NOTIFIED FISH CLEANER, ABG WAS ORDERED AND RESULTED. PT WAS TAKEN OFF OXYMIZER AND WAS LEFT ON THE NRB MASK AND WAS ABLE TO MAINTAIN 94% SP02. WILL CONTINUE TO MONITOR PATIENT.
--- NOTE | 2020-05-25 12:15 | NUR ---
PT IN GALVANIZING POT RUNNER UNABLE TO DRAW ABG AT THIS TIME.
[2020-05-25] MEDS ORDERED: IODIXANOL 320MG/ML 100ML BTL IV ONE (12:52)
[2020-05-25] MEDS ORDERED: LIDOCAINE 2%HCL (LOCAL ANESTH.) INJ 20ML MDV ONE (12:52)
[2020-05-25] MEDS ORDERED: fentaNYL CITRATE 100 MCG/2 ML VL ONE (13:01)
[2020-05-25] MEDS ORDERED: ANGIOMAX 250 MG VIAL IV ONE ×2 (13:01→13:28)
[2020-05-25] MEDS ORDERED: MIDAZOLAM HCL 1MG/1ML-2 ML VIAL ONE (13:02)
[2020-05-25] MEDS ORDERED: SODIUM CHL 0.9% 50 ML ONE (13:02)
[2020-05-25] MEDS ORDERED: ASPirin 325 MG TAB ONE (13:41)
[2020-05-25] MEDS ORDERED: CLOPIDOGREL 300 MG TAB ONE (13:41)
--- NOTE | 2020-05-25 15:45 | NUR ---
Returned from label printer Dressing is CDI. No sign of hematoma around area of insertion. Patient is a little groggy but says he feels better. He is on the non-rebreather at 15L and satting well in the 90's, says he feels like he can breath better. Will continue to monitor. Sitter at bedside. RN reported they placed a stent in the LAD.
--- NOTE | 2020-05-25 19:30 | NUR ---
Opening Shift Note Received report from day RN Wendy and Assumed care of patient. Patient is awake and alert. In report RN, patient has been breathing labored and having SOB, but pt has been taking medications with no problems. Took ativan earlier in day with no incident. Patient requesting ativan and norco. Advised patient we can not give together. Instructed on POC and to call for assist PRN, will continue to monitor for changes Q1hr and PRN. Addendum: 05/26/20 at 0026 by Fernando Pearce RN respirations 22
[2020-05-25 20:30] VITALS: BP 144/70
--- NOTE | 2020-05-25 21:30 | NUR ---
Called CODE ASSIST: [employer] called and advised me patient heart rate went to 140-150's. patient was on commode when patient heart rate went to 140-150's. patient had non rebreather oxygen on when he was on commode per NAVAL INSPECTOR. upon arrival, patient was labored, heart rate still elevated, and oxygen saturation was maintaining in 70's- called code assist. Patient had high blood pressure. Hospitalist came and assessed patient. patient will be transferring to [facility]. Will give report. Addendum: 05/26/20 at 0044 by Fernando Pearce RN patient was on commode having a BM.
--- NOTE | 2020-05-25 21:40 | NUR ---
provided report to [facility] RN, and transferring patient out now. notified Haydee RN of patient had a code assist, low oxygen saturations, high heart rate, and labored breathing and all this occurred when patient went to commode. Also endorsed to Haydee RN medications for 0 has not been given yet.
[2020-05-25 22:15] VITALS: BP 158/84
--- NOTE | 2020-05-25 22:19 | NUR ---
PT PLACED ON HFNC WITH SETTINGS 100% FIO2 AND 70L FLOW. SPO2 AT 78% DESPITE THESE SETTINGS. PT REFUSING MED NEB TX. JANET ROWAN AT BEDSIDE.
--- NOTE | 2020-05-25 22:19 | NUR ---
Received pt from German RN, pt diaphoretic, working hard with labored breathing, encouraged to calm down, breathe through nose. Sys bp 166 HR 133, Apresoline given. RT at bedside. German GONZALES stated he gave Ativan PO. Will continue to closely monitor.
[2020-05-25] MEDS: hydrALAZINE HCL 20 MG/ML VL IV PRN (22:27)
[2020-05-25] MEDS ORDERED: SUCCINYLCHOLINE CHLORIDE 20 MG/ML 10ML VIAL IV ONE ×3 (22:40→23:45)
[2020-05-25] MEDS ORDERED: ETOMIDATE (2MG/ML) 20ML VIAL IV ONE ×3 (22:40→23:45)
--- NOTE | 2020-05-25 22:49 | NUR ---
MEDS: Etomidate 15mg IVP & Succinylcholine 60mg IVP given for intubation.
--- NOTE | 2020-05-25 22:50 | NUR ---
PT DID NOT IMPROVE WITH HFNC. SPO2 REMAINS 78%, RR 44. PT INTUBATED AT THIS TIME BY MYSELF WITH JEET HODGES AT BEDSIDE. TUBE PLACEMENT CONFIRMED BY POSITIVE CAPNOMETER COLOR CHANGE AND BREATH SOUNDS. PT TRANSPORTED TO ICU WITHOUT INCIDENT IMMEDIATELY FOLLOWING INTUBATION. Addendum: 05/25/20 at 2335 by TEETEE POST RT ETT SIZE 8.0 AND SECURED BY PARTH AT 24 UPPER LIP.
--- NOTE | 2020-05-25 22:50 | NUR ---
INTUBATION: Pt intubated by RT Mic w/ 8.0 ETT on 1st attempt; ETT secured at 24cm. Micky Christianson N.P. at bedside. Pt to be transferred to ICU 104 at this time w/ ACLS protocols.
--- NOTE | 2020-05-25 22:55 | NUR ---
Transfer to ICU Pt being bagged by RT and transferred to ICU on bed and traffic monitor specialist. Pt connected top ICU monitoring and ventilator. HR 144 RR 33 91%O2 B/P 147/92. AC 14 VT 550 PEEP 5 FIO2 100%. SIZE 8 ET TUBE AND 24CM AT THE LIP. Pt using accessory muscles to breath and waking up. Propofol started per MD order. OGT inserted, proper placement verified. Winters catheter inserted, secured below bladder draining yellow urine. Pupils 4 and slugglish. Addendum: 05/26/20 at 0224 by ARIADNA STUBBS RN CORRECT TIME 2462
[2020-05-25] MEDS ORDERED: PROPOFOL 100 ML IV ONE (22:58)
[2020-05-25 23:00] VITALS: BP 147/92
--- NOTE | 2020-05-25 23:05 | NUR ---
Pt remained unstable. Extremely labored breathing, unable to recover on high flow with O2 sats remaining from 77-83%. Severely diaphoretic. RT contacted Sammy CAMPUS MANAGER while RN at bedside and stated would be in to intubate. Pt very tired stating "I can't, I can't." ramp supervisor Dimas RN at bedside to assist with intubation. Etomidate and Succs given at 2249, pt intubated at 2250 with size 8 ET tube used. Pt on portable zole and RT bagging for oxygenation. Pt immediately wheeled to ICU with Accident sup, CCT, and RT. Report given to Ansley GONZALES. Care endorsed.
[2020-05-25] MEDS: PROPOFOL 100 ML IV SCH (23:13)
[2020-05-25] MEDS ORDERED: fentaNYL Drip 2500mCg/250mlNS 250 ML IV ONE (23:17)
[2020-05-25] MEDS ORDERED: NOREPINEPHRINE 8 MG/250ML KIT 250 ML IV ONE (23:18)
--- NOTE | 2020-05-25 23:58 | NUR ---
Notified family of patient being transferred to [facility] for higher level of care.
[2020-05-26] VITALS (103 sets, daily range): BP systolic 73–146; BP diastolic 47–81
--- NOTE | 2020-05-26 00:30 | NUR ---
PT ASYNCHRONOUS WITH THE VENTILATOR; PAGED RESEARCH ASSOCIATE HOSPITALIST FOR ADDITIONAL ORDERS
--- NOTE | 2020-05-26 01:00 | NUR ---
Family Spoke with pt's daughter, update given. Pt's daughter, dwight, verbalized understanding
[2020-05-26] MEDS: cefTRIAXone 1GM/50ML D5W 50 ML IV SCH (01:48)
[2020-05-26] MEDS: busPIRone HCL 10 MG TAB PO SCH ×2 (01:48→06:16)
[2020-05-26] MEDS: ATORVASTATIN 20 MG TAB PO SCH ×2 (01:49→22:00)
[2020-05-26] MEDS: LINEZOLID 600MG TABLET PO SCH (01:50)
--- NOTE | 2020-05-26 02:30 | NUR ---
Spoke with hospitalist. New orders received.
[2020-05-26] MEDS: MIDAZOLAM DRIP 50 mg/50mL 50 ML IV SCH ×3 (02:37→18:26)
[2020-05-26 04:56] LABS: Hemoglobin 11.6 g/dL (13.5-17.5); Mean Corpuscular Hemoglobin 27.8 pg (28.0-32.0); Mean Corpuscular Hgb Conc. 32.2 g/dL (32.0-36.0); Mean Corpuscular Volume 86.1 fL (80.0-100.0); Platelet Count (auto) 491 10^3/uL (140-450); Red Blood Cells 4.18 10^6/uL (4.5-5.90); Red Cell Distribution Width 15.3 % (11.8-14.3)
[2020-05-26 05:14] LABS: Potassium 4.2 mmol/L (3.5-5.1)
[2020-05-26 05:17] LABS: BUN/Creatinine Ratio 22.9; Calcium 8.7 mg/dL (8.5-10.1)
[2020-05-26 05:41] LABS: White Blood Cell 35.7 10^3/uL (4.4-10.8)
[2020-05-26 05:43] LABS: Band Neutrophils % (manual) 0; Basophils % (manual) 0 (0.0-2.0); Blast Cells 0; Eosinophils % (manual) 0 (0-7); Metamyelocytes % 0; Myelocytes % 0; Promyelocytes % 0; Reactive Lymphocytes 0
[2020-05-26] MEDS: GABAPENTIN 400 MG CAP PO SCH (06:00)
[2020-05-26] MEDS: ALBUTEROL SULF 2.5 MG/0.5ML(0.5%) NEB SOLN NEB SCH ×5 (06:12→22:19)
[2020-05-26] MEDS: IPRATROPIUM BROM 0.5 MG/2.5ML INH SOL NEB SCH ×5 (06:12→22:19)
--- NOTE | 2020-05-26 06:30 | NUR ---
Page out to hospitalist regarding critical wbc. awaiting return call
[2020-05-26] MEDS ORDERED: VANCOMYCIN PER PHARMACY 0 MG IV SCH (07:30)
[2020-05-26] MEDS: Glucerna Carbsteady SHAKE Vanilla 8oz PO SCH (08:00)
--- NOTE | 2020-05-26 08:18 | NUR ---
CARDIOLOGY AT BEDSIDE AURY UPDATED ON PATIENT'S STATUS AND ORDERED LOPRESSOR, ORDERS TO DISCONTINUE LOPRESSOR RECEIVED.
[2020-05-26 08:21] LABS: Lymphocytes % (manual) 5 (10.0-50.0); Monocytes % (manual) 3 (0-12)
[2020-05-26] MEDS ORDERED: BUMETANIDE 2.5mg/10ml (0.25 mg/ml) INJ IV ONE (09:00)
[2020-05-26] MEDS: ASPirin-EC 81 mg tab PO SCH ×2 (10:00→10:09)
[2020-05-26] MEDS: CLOPIDOGREL BISULFATE 75 MG TAB PO SCH (10:00)
[2020-05-26] MEDS: PANTOPRAZOLE 40 MG/10 ML VIAL INJ IV SCH (10:08)
[2020-05-26] MEDS: ENOXAPARIN SOD 30 MG/0.3 ML SYRINGE SC SCH (10:10)
[2020-05-26] MEDS: MEROPENEM 1GM IVPB 100 ML IV SCH ×2 (10:11→21:00)
[2020-05-26] MEDS: NICOTINE 21MG/24 HR TOPICAL PATCH TD SCH (10:14)
--- NOTE | 2020-05-26 11:31 | NUR ---
NEPHROLOGY AT BEDSIDE DR OSMAN UPDATED ON PATIENT'S STATUS AND LOW URINE OUTPUT DURING FLAME PLANER AND CURRENTLY, MD VERBALIZED UNDERSTANDING. ORDERS FOR BUMEX AND WILL BE ENTERED BY .
--- NOTE | 2020-05-26 12:30 | NUR ---
DR. TURNER AT BEDSIDE WITH VENT CHANGES: PCV, P20, RR 24, PEEP +10, I TIME 1.2, FIO2 70%. ABG TO FOLLOW IN ONE HOUR. NOTIFIED RT ARIADNA OF CHANGES.
--- NOTE | 2020-05-26 13:00 | NUR ---
RT NOTE: MD TURNER MADE CHANGES TO VENT. INCREASED PEEP TO 12 AND DECREASED I-TIME TO .8. TO STILL GET ABG SCHEDULED FOR 1330
--- NOTE | 2020-05-26 13:07 | NUR ---
PULMONOLOGY AT BEDSIDE DR TURNER MADE PREVIOUS CHANGES TO THE VENTILATOR, PATIENT NOTED TO BE AGONAL BREATHING, INCREASED RESPIRATIONS, DECREASED BLOOD PRESSURE (CONTINUES ON LEVOPHED). DR TURNER ORDERED NURSE TO MAX PATIENT ON ALL SEDATION, PATIENT CURRENTLY ON FENTANYL, VERSED AND DIPROVAN. Kristina ROSENTHAL AT BEDSIDE AND AWARE OF CHANGES, FIO2 100%.
--- NOTE | 2020-05-26 13:30 | NUR ---
PAGED CARDIOLOGY AURY TO NOTIFY OF NO NGT OR OGT AND UNABLE TO ADMINISTER ORAL ASPIRIN AND PLAVIX, AWAITING RESPONSE.
--- NOTE | 2020-05-26 13:35 | NUR ---
Midline Placement: 18g/10cm midline inserted via right brachial vein using Ultrasound. Sterile technique utilized. Blood return obtained from lumen and flushed easily with NS using proper technique. Midline secured with saline lock; biodisc and occlusive dressing applied. Primary RN notified. Midline lot #[id number]
[2020-05-26] MEDS: fentaNYL Drip 2500mCg/250mlNS 250 ML IV SCH (13:48)
--- NOTE | 2020-05-26 14:05 | NUR ---
RT NOTE: MD TURNER AWARE OF ABG RESULTS. ORDERED MORE VENT CHANGES. INCREASE RR BACK TO 30. NO FOLLOW UP ABG. WILL CONTINUE TO MONITOR.
[2020-05-26] MEDS ORDERED: FUROSEMIDE INJECTION 100 MG in D5W 5% 100 ML IV SCH (15:00)
--- NOTE | 2020-05-26 15:00 | NUR ---
PAGE PULMONOLOGY DR TURNER UPDATED ON PATIENT'S CHANGES VITAL SIGNS (INCREASED HR GREATER THAN 130 AND CO2 GREATER THAN 80). ORDERS TO PLACE PATIENT BACK ON VENT SETTINGS PRIOR TO CHANGES MADE BY HIM EARLIER. DR TURNER ALSO RECOMMENDING DIALYSIS. HOSPITALIST AND NEPHROLOGY WILL BE NOTIFIED.
--- NOTE | 2020-05-26 15:10 | NUR ---
RT NOTE: CALLED STAT TO ROOM FROM RN. PT HR 135+, INCREASED WOB AND ETCO2 READING 82. RN CALLED GRIGORIYAN AND ORDERS GIVEN TO RETURN PT TO AM VENT ORDERS. PC: P28 RR30 PEEP+5 I-TIME1.2. FIO2 DECREASED TO 70%. RN AWARE. WILL CONTINUE TO MONITOR.
[2020-05-26] MEDS: LINEZOLID 600MG/300ML 300 ML IV SCH (15:11)
--- NOTE | 2020-05-26 15:30 | NUR ---
SPOKE WITH NEPHROLOGY DR OSMAN UPDATED ON PATIENT'S STATUS, VS CHANGED AFTER VENT CHANGES FROM DR TURNER. DR OSMAN ALSO AWARE OF CONTINUED LOW URINE OUTPUT EVEN AFTER BUMEX ADMINISTRATION. DR OSMAN ALSO AWARE THAT PER PHARMACY, "BUMEX IS ON BACK ORDER". DR OSMAN ORDERED LASIX DRIP AND STAT CMP. LASIX DRIP AVAILABLE PER JOHAN AT PHARMACY AND AWAITING RECEIPT AFTER CHANGES MADE BY DRAPERY ROD ASSEMBLER AT BEDSIDE.
--- NOTE | 2020-05-26 15:32 | NUR ---
PAGED CARDIOLOGY/FAMILY UPDATE PAGED AURY MO TO NOTIFY OF NO NG/OGT AND PLAVIX, ASPIRIN PENDING TO BE ADMINISTERED SINCE PATIENT HAD STENT PLACEMENT YESTERDAY, AWAITING RESPONSE. Family updated on pt status Family of MARLENI HART updated on patient's status and condition after password verification. All questions and concerns addressed. Patient's daughter Geetha verbalized understanding.
--- NOTE | 2020-05-26 16:12 | NUR ---
SPOKE WITH HOSPITALIST DR VICENTE UPDATED ON PATIENT'S STATUS AND NEED TO INCREASE LEVOPHED TO 22 MCG. ORDERS FOR PHENYLEPHRINE IF NEEDED RECEIVED. DR VICENTE ALSO NOTIFIED THIS NURSE THAT SHE SPOKE WITH FAMILY MEMBER PATIENT'S DAUGHTER NAI AND FAMILY REQUESTING TO SEE PATIENT. DUE TO CDC GUIDELINES AND COVID 19, FAMILY NOT ALLOWED AT BEDSIDE, HOWEVER THIS WILL BE DISCUSSED WITH DIRECT PHU TO SEE IF ACCOMMODATIONS CAN BE MADE.
[2020-05-26 16:22] LABS: BUN/Creatinine Ratio 17.3; Calcium 8.8 mg/dL (8.5-10.1); Potassium 4.4 mmol/L (3.5-5.1)
[2020-05-26] MEDS: FUROSEMIDE INJECTION 100 MG in D5W 5% 100 ML IV SCH ×2 (16:35→23:00)
--- NOTE | 2020-05-26 16:44 | NUR ---
CONTACT FAMILY RE: VISIT PER PHU, ICU DIRECTOR - IMMEDIATE FAMILY MEMBERS CAN COME VISIT PATIENT FOR A FEW MINUTES TAKING ISOLATION PRECAUTIONS DUE TO THE PANDEMIC. SPOKE WITH PATIENT'S DAUGHTER NAI, VERBALIZED UNDERSTANDING AND STATED THERE WILL PROBABLY BE FOUR FAMILY MEMBERS.
[2020-05-26] MEDS ORDERED: PHENYLEPHRINE IV 250 ML IV ONE (16:50)
[2020-05-26] MEDS: PHENYLEPHRINE IV 250 ML IV SCH (17:36)
--- NOTE | 2020-05-26 17:57 | NUR ---
FAMILY AT BEDSIDE PATIENT'S SPOUSE AND THREE ADULT CHILDREN AT BEDSIDE, UPDATED ON STATUS AND VITAL SIGNS. ALL FAMILY MEMBERS VERBALIZED UNDERSTANDING - SPOUSE SPEAKS BOTH HEBREW AND KAZAKH VERBALIZED SHE UNDERSTOOD.
[2020-05-26] MEDS ORDERED: BUMETANIDE 2.5mg/10ml (0.25 mg/ml) INJ IV SCH (18:00)
--- NOTE | 2020-05-26 18:46 | NUR ---
RT NOTE RECEIVED PT INTUBATED AND ON VENT V19 ON STATED SETTINGS.VENT IS PLUGGED TO RED OUTLET. ALARMS ARE ON AND AUDIBLE TO NURSING. AMBU BAG AT BEDSIDE AND CONNECTED TO O2 SOURCE. 8.0 ETT IS SECURED WITH ANCHORFAST AT 24CM TO THE ORAL LEFT MOVED TO THE RIGHT.BS ARE COARSE. PT WAS SUCTIONED FOR SMALL RETURN FROM ETT AND ORALLY. HHN GIVEN INLINE WITH 2.5 MG ALBUTEROL AND 0.5 MG ATROVENT WITHOUT ADVERSE REACTION NOTED. PT TEMP 101.1, etCO2 42, POX 97% Addendum: 05/26/20 at 1859 by Arianna Rosas RT Amended: Links added.
--- NOTE | 2020-05-26 20:04 | NUR ---
RT NOTE ROUTINE VENT CHECK DONE. PT INTUBATED AND ON VENT V19 ON STATED SETTINGS.VENT IS PLUGGED TO RED OUTLET. ALARMS ARE ON AND AUDIBLE TO NURSING. AMBU BAG AT BEDSIDE AND CONNECTED TO O2 SOURCE. 8.0 ETT IS SECURED WITH ANCHORFAST AT 24CM TO THE RIGHT.FIO2 TITRATED TO 60% PT TEMP 100.8, etCO2 43, POX 98% Addendum: 05/26/20 at 2030 by Arianna Rosas RT Amended: Links added.
--- NOTE | 2020-05-26 22:15 | NUR ---
RT NOTE ROUTINE VENT CHECK DONE. PT INTUBATED AND ON VENT V19 ON STATED SETTINGS.VENT IS PLUGGED TO RED OUTLET. ALARMS ARE ON AND AUDIBLE TO NURSING. AMBU BAG AT BEDSIDE AND CONNECTED TO O2 SOURCE. 8.0 ETT IS SECURED WITH ANCHORFAST AT 24CM TO THE RIGHT.FIO2 TITRATED TO 50%, JANET ROSENTHAL NOTIFIED. HHN GIVEN INLINE WITH 2.5 MG ALBUTEROL AND 0.5 MG ATROVENT WITHOUT ADVERSE REACTION NOTED. PT TEMP 100.0, etCO2 45, POX 95% Addendum: 05/26/20 at 2219 by Arianna Rosas RT Amended: Links added.
[2020-05-27] VITALS (101 sets, daily range): BP systolic 57–155; BP diastolic 33–83
--- NOTE | 2020-05-27 00:03 | NUR ---
RT NOTE ROUTINE VENT CHECK DONE. PT INTUBATED AND ON VENT V19 ON STATED SETTINGS.VENT IS PLUGGED TO RED OUTLET. ALARMS ARE ON AND AUDIBLE TO NURSING. AMBU BAG AT BEDSIDE AND CONNECTED TO O2 SOURCE. 8.0 ETT IS SECURED WITH ANCHORFAST AT 24CM TO THE RIGHT. HME CHANGED WITHOUT INCIDENT. PT TEMP 100.2, etCO2 44, POX 94% Addendum: 05/27/20 at 0047 by Arianna Rosas RT Amended: Links added.
[2020-05-27] MEDS: NOREPINEPHRINE 8 MG/250ML KIT 250 ML IV SCH (01:23)
[2020-05-27] MEDS: PROPOFOL 100 ML IV SCH ×2 (01:23→08:00)
[2020-05-27] MEDS: PHENYLEPHRINE IV 250 ML IV SCH ×3 (01:56→18:36)
[2020-05-27] MEDS: fentaNYL Drip 2500mCg/250mlNS 250 ML IV SCH (02:02)
--- NOTE | 2020-05-27 02:02 | NUR ---
RT NOTE ROUTINE VENT CHECK DONE. PT INTUBATED AND ON VENT V19 ON STATED SETTINGS.VENT IS PLUGGED TO RED OUTLET. ALARMS ARE ON AND AUDIBLE TO NURSING. AMBU BAG AT BEDSIDE AND CONNECTED TO O2 SOURCE. 8.0 ETT IS SECURED WITH ANCHORFAST AT 24CM TO THE RIGHT. PT TEMP 100.4 ON COOLING MEASURES, etCO2 37, POX 94% Addendum: 05/27/20 at 0221 by Arianna Rosas RT Amended: Links added.
[2020-05-27] MEDS: FUROSEMIDE INJECTION 100 MG in D5W 5% 100 ML IV SCH ×2 (02:09→08:00)
[2020-05-27 04:09] LABS: Hemoglobin 11.1 g/dL (13.5-17.5)
[2020-05-27 04:10] LABS: Mean Corpuscular Hemoglobin 28.5 pg (28.0-32.0); Mean Corpuscular Hgb Conc. 32.6 g/dL (32.0-36.0); Mean Corpuscular Volume 87.5 fL (80.0-100.0); Platelet Count (auto) 422 10^3/uL (140-450); Red Blood Cells 3.89 10^6/uL (4.5-5.90); Red Cell Distribution Width 16.1 % (11.8-14.3)
[2020-05-27 04:18] LABS: White Blood Cell 33.4 10^3/uL (4.4-10.8)
--- NOTE | 2020-05-27 04:18 | NUR ---
RT NOTE ROUTINE VENT CHECK DONE. PT INTUBATED AND ON VENT V19 ON STATED SETTINGS.VENT IS PLUGGED TO RED OUTLET. ALARMS ARE ON AND AUDIBLE TO NURSING. AMBU BAG AT BEDSIDE AND CONNECTED TO O2 SOURCE. 8.0 ETT IS SECURED WITH ANCHORFAST AT 24CM TO THE RIGHT. PT TEMP 99.7 ON COOLING MEASURES, etCO2 40, POX 91% Addendum: 05/27/20 at 0418 by Arianna Rossa RT Amended: Links added.
[2020-05-27 04:19] LABS: Band Neutrophils % (manual) 0; Basophils % (manual) 0 (0.0-2.0); Blast Cells 0; Eosinophils % (manual) 0 (0-7); Metamyelocytes % 0; Myelocytes % 0; Promyelocytes % 0; Reactive Lymphocytes 0
[2020-05-27 04:34] LABS: Albumin 2.3 g/dL (3.4-5.0); BUN/Creatinine Ratio 15.9; Calcium 8.1 mg/dL (8.5-10.1); Magnesium 2.7 mg/dL (1.6-2.6)
[2020-05-27 04:36] LABS: Lymphocytes % (manual) 12 (10.0-50.0); Monocytes % (manual) 2 (0-12)
[2020-05-27 04:37] LABS: Bilirubin, Total 0.5 mg/dL (0.2-1.0); Total Protein 6.4 g/dL (6.4-8.2)
--- NOTE | 2020-05-27 05:18 | NUR ---
Left message for Dr. Chen regarding chest x ray result. Awaiting call back. Will try and call again in 30 minutes.
--- NOTE | 2020-05-27 05:35 | NUR ---
Received call back from Dr. Chen. Made aware of chest x ray results. new order to consult radiologist regarding right pneumothorax.
[2020-05-27] MEDS: MIDAZOLAM DRIP 50 mg/50mL 50 ML IV SCH (07:06)
[2020-05-27] MEDS: ALBUTEROL SULF 2.5 MG/0.5ML(0.5%) NEB SOLN NEB SCH ×5 (08:18→22:09)
[2020-05-27] MEDS: IPRATROPIUM BROM 0.5 MG/2.5ML INH SOL NEB SCH ×5 (08:18→22:08)
--- NOTE | 2020-05-27 09:45 | NUR ---
FAMILY Called patients daughter Geetha at [phone] regarding consent for chest tube placement and dialysis catheter placement. Geetha states " will call you back in a few minutes going to discuss procedures with my mom and sister."
[2020-05-27] MEDS: CLOPIDOGREL BISULFATE 75 MG TAB PO SCH (09:48)
[2020-05-27] MEDS: ASPirin-EC 81 mg tab PO SCH (09:48)
[2020-05-27] MEDS: ENOXAPARIN SOD 30 MG/0.3 ML SYRINGE SC SCH (09:48)
[2020-05-27] MEDS: PANTOPRAZOLE 40 MG/10 ML VIAL INJ IV SCH (09:51)
--- NOTE | 2020-05-27 09:55 | NUR ---
CONSENTS Consents obtained by patients Coco Rowe via telephone and witnessed by Isadora GONZALES.
[2020-05-27] MEDS: MEROPENEM 1GM IVPB 100 ML IV SCH ×2 (09:59→21:00)
[2020-05-27] MEDS: NICOTINE 21MG/24 HR TOPICAL PATCH TD SCH (09:59)
--- NOTE | 2020-05-27 10:15 | NUR ---
MD Dr. Omalley at bedside to place dialysis catheter and chest tube placement.
[2020-05-27] MEDS: LINEZOLID 600MG/300ML 300 ML IV SCH ×2 (12:00)
--- NOTE | 2020-05-27 12:40 | NUR ---
Nutrition Followup/Consult Notes: Pt wt is 64.5 kg Pt is intubated and sedated with propofol running @ 19.35 ml/hr, providing 511 kcals from lipids. Noted pt is receiving HD d/t compromised kidney function. Pt is NPO with no diet order yet. If EN nutrition support is preferred , suggest Nepro with Carb Steady 1.8 @ 45ml/hr with current rate of propofol (60ml/hr goal rate without propofol). Will continue to monitor PO status, skin status, pertinent labs and weight trends. Will f/u in 2-3 days. Est Energy needs BW 77 [id number] kcals (30-35 kcal/kgBW), d/t pt with HD Est Protein needs: 92-107 gms/day (1.2-1.4 gm/kgBW r/t HD). d/t pt with HD Will continue to monitor and reassess prn. LABS: BUN 67 H, Creat 4.22 H, GFR 15 L, GLUC 185 H, Alb 2.3 L GI: Pt had 1 BM on 05/25 per RN doc BS: 12 high risk. Refer to wound assessment report for full details. PES: Altered nutrition related labs r/t to current medical condition aeb pt with elevated RFTs, hyperglycemia Comments 1) Gradually advance pt to oral diet when medically feasible and as tolerated per MD approval 2) Consider CCHO 60 gm if blood glu continues to be elev along with current diet 3) Consider low TG along with current diet 4) Continue current plan of care
[2020-05-27] MEDS: FLUCONAZOLE 200MG/100ML 100 ML IV SCH ×2 (15:00→16:00)
--- NOTE | 2020-05-27 15:15 | NUR ---
HEMODIALYSIS Hemodialysis started with Jadiel GONZALES at bedside.
[2020-05-27] MEDS ORDERED: ALBUMIN 25% 50 ML IV ONE (15:45)
--- NOTE | 2020-05-27 17:05 | NUR ---
WOUND CARE NOTE: Wound care in to see patient per wound care request regarding Rt. hand blister, low Ge score of 12 and intubation status, putting patient to high risk for skin breakdown. Patient is 64 years old male with admitting diagnosis of Pna. Patient is resting in ICU bed in Rm. 104. Patient is intubated, sedated and mechanically ventilated. Patient appears to be in no pain using [place] Faces Pain Scale. Attempted to see patient earlier at 1047. Patient is having bedside procedure. Unable to assess patient's sacral and back again at this time 1705 as patient is having Dialysis. JANET Quiñones at bedside reported that patient has has no wound other than Rt hand 2x0.6cm intact serum filled blister, no drainage/odor noted, left open to air. Bedside nurse reported that patient has no pressure injury noted in morning skin assessment. Patient is receiving BID/PRN cleaning and application of Barrier cream to sacral, buttocks as preventative. Photograph of patient's Rt. hand blister taken for reference. RECOMMENDATION: Nursing to continue with BID/PRN cleaning and application of Barrier cream to sacral, buttocks as preventative, frequent turning and repositioning schedule as condition permits, redistribute pressure points with pillows, elevate heels on pillows, continue monitoring by wound care while patient is intubated and has Ge score of <18. Addendum: 05/27/20 at 1745 by Migdalia Chung RN Amended: Links added.
--- NOTE | 2020-05-27 18:15 | NUR ---
HEMODIALYSIS Hemodialysis has finished at this time and fluid pulled out was 1.9 liters.
[2020-05-27] MEDS: ATORVASTATIN 20 MG TAB PO SCH (22:00)
--- NOTE | 2020-05-27 22:30 | NUR ---
Family pt's daughter called and update given. All questions and concerns addressed at this time
[2020-05-28] VITALS (109 sets, daily range): BP systolic 70–129; BP diastolic 40–68
[2020-05-28] MEDS: PHENYLEPHRINE IV 250 ML IV SCH ×2 (02:56→11:16)
[2020-05-28] MEDS: fentaNYL Drip 2500mCg/250mlNS 250 ML IV SCH ×2 (04:00→14:08)
[2020-05-28 04:43] LABS: Basophils # (auto) 0.1 10 ^3/uL (0-0.2); Basophils % (auto) 0.8 % (0.0-2.0); Eosinophils # (auto) 0.4 10 ^3/uL (0-0.8); Eosinophils % (auto) 2.6 % (0.0-7.0); Hematocrit 26.6 % (41.0-53.0); Hemoglobin 8.8 g/dL (13.5-17.5); Lymphocytes # (auto) 1.6 10 ^3/uL (0.4-5.4); Lymphocytes % (auto) 11.6 % (10.0-50.0); Mean Corpuscular Hemoglobin 28.6 pg (28.0-32.0); Mean Corpuscular Hgb Conc. 33.2 g/dL (32.0-36.0); Mean Corpuscular Volume 86.1 fL (80.0-100.0); Monocytes # (auto) 0.8 10 ^3/uL (0-1.3); Monocytes % (auto) 6.2 % (0.0-12.0); Neutrophils # (auto) 10.8 10 ^3/uL (1.6-8.6); Neutrophils % (auto) 78.8 % (37.0-80.0); Platelet Count (auto) 257 10^3/uL (140-450); Red Blood Cells 3.09 10^6/uL (4.5-5.90); Red Cell Distribution Width 16.1 % (11.8-14.3); White Blood Cell 13.7 10^3/uL (4.4-10.8)
--- NOTE | 2020-05-28 05:00 | NUR ---
Cares Pt given CHG bath wipe and partial linen change at this time. Pt tolerated well
[2020-05-28 05:02] LABS: Calcium 7.8 mg/dL (8.5-10.1); Potassium 3.1 mmol/L (3.5-5.1)
[2020-05-28 05:09] LABS: Albumin 2.7 g/dL (3.4-5.0); BUN/Creatinine Ratio 13.3; Bilirubin, Total 0.6 mg/dL (0.2-1.0)
[2020-05-28] MEDS: NOREPINEPHRINE 8 MG/250ML KIT 250 ML IV SCH ×2 (06:00→14:00)
[2020-05-28] MEDS: IPRATROPIUM BROM 0.5 MG/2.5ML INH SOL NEB SCH ×5 (06:17→22:33)
[2020-05-28] MEDS: ALBUTEROL SULF 2.5 MG/0.5ML(0.5%) NEB SOLN NEB SCH ×5 (06:17→22:33)
[2020-05-28] MEDS: MIDAZOLAM DRIP 50 mg/50mL 50 ML IV SCH ×3 (06:29→17:49)
--- NOTE | 2020-05-28 06:30 | NUR ---
Bob hospitalist; new order received. Potassium 20 meq IV
[2020-05-28] MEDS ORDERED: POTASSIUM CHL 20MEQ/100ML 100 ML IV ONE (07:00)
--- NOTE | 2020-05-28 07:30 | NUR ---
REPORT RECEIVED. INITIAL ASSESSMENT COMPLETED. SEE FLOW SHEET FOR DATA. PT ON A VENT AND SEDATED. WILL CONT TO MONITOR.
--- NOTE | 2020-05-28 07:37 | NUR ---
Report given to day shift RN, made aware of chest x ray result and potassium order.
[2020-05-28] MEDS: MEROPENEM 1GM IVPB 100 ML IV SCH ×2 (08:41→20:47)
[2020-05-28] MEDS: PANTOPRAZOLE 40 MG/10 ML VIAL INJ IV SCH (09:58)
[2020-05-28] MEDS: ENOXAPARIN SOD 30 MG/0.3 ML SYRINGE SC SCH (09:58)
[2020-05-28] MEDS: NICOTINE 21MG/24 HR TOPICAL PATCH TD SCH (10:00)
[2020-05-28] MEDS: CLOPIDOGREL BISULFATE 75 MG TAB PO SCH (10:00)
[2020-05-28] MEDS: ASPirin-EC 81 mg tab PO SCH (10:00)
--- NOTE | 2020-05-28 10:30 | NUR ---
SEEN AND EVAL BY DR OSMAN .
--- NOTE | 2020-05-28 10:35 | NUR ---
Provider/Hospitalist at bedside
[2020-05-28] MEDS: LINEZOLID 600MG/300ML 300 ML IV SCH ×3 (11:15→23:48)
[2020-05-28] MEDS ORDERED: POTASSIUM EFFERVESENT TAB 25 MEQ GT ONE (13:15)
--- NOTE | 2020-05-28 14:00 | NUR ---
PER FORESTRY SUPERVISOR, PT DAUGHTER REFUSED TO GIVE CONSENT FOR CT OF THE CHEST WITH CONTRAST.
[2020-05-28] MEDS: FLUCONAZOLE 200MG/100ML 100 ML IV SCH ×2 (14:03→15:00)
--- NOTE | 2020-05-28 14:06 | NUR ---
Respiratory note: ROUTINE VENT CHECK DONE. INCREASED FIO2 TO 60% PT'S SATS ARE 89%. PT RECEIVED MN TX INLINE. NO ADVERSE REACTION NOTED. RN AT BEDSIDE.
--- NOTE | 2020-05-28 15:00 | NUR ---
PT TEMP 101.3- COLD COMPRESS APPLIED.
[2020-05-28] MEDS ORDERED: ACETAMINOPHEN 650 mg PER 20 mL UD GT ONE (15:15)
[2020-05-28] MEDS ORDERED: ACETAMINOPHEN 650 mg PER 20 mL UD ONE (15:17)
--- NOTE | 2020-05-28 17:00 | NUR ---
INITIAL CONTACT REPORT RECEIVED FROM ALEX GONZALES, CARE ASSUMED. PT OBSERVED RESTING IN BED. NO DISTRESS NOTED. SEDATION OF VERSED, DIPRIVAN, AND FENTANYL IN USE. PUPILS ARE EQUAL AND REACTIVE TO LIGHT. PULSES PALPATION RADIAL AND PEDAL BILATERALLY. LUNGS CLEAR TO DIMINISHED ANTERIORLY, TOLERATING VENTILATION WELL AT THIS TIME. OXYGEN SATURATION 95%. ORTIZ CATHETER PRESENT, PATENT, AND SECURED BELOW BLADDER. ALL EXTREMITIES OFF LOADED ON PILLOWS. SEE SKIN/WOUND ASSESSMENT. ALARMS IN PLACE. RIGHT UPPER CHEST CHEST TUBE, DRESSING CDI. NO AIR LEAK, SUBCUTANEOUS CREPITUS NOTED LEFT AND PROXIMAL TO INSERTION SITE. BED LOCKED IN LOWEST POSITION. WILL CONTINUE TO MONITOR.
--- NOTE | 2020-05-28 17:30 | NUR ---
CARES PARTIAL LINEN CHANGE COMPLETE. PATIENT REPOSITIONED ON SIDE. TOLERATED ACTIVITY FAIR, HEART RATE INCREASED. ALL EXTREMITIES OFF LOADED ON PILLOWS. BED LOCKED IN LOWEST POSITION, ALARMS IN PLACE. WILL CONTINUE TO MONITOR.
--- NOTE | 2020-05-28 17:43 | NUR ---
MD VISIT AT BEDSIDE ROUNDING. MD AWARE OF CXR RESULTS FROM THIS MORNING, IV MEDICATIONS, AND SUBCUTANEOUS EMPHYSEMA. MD AWARE. MD ASSESSING SITE AND PATENCY. MD ORDERED TO INCREASE SUCTION TO -40.
--- NOTE | 2020-05-28 19:18 | NUR ---
REPORT REPORT GIVEN TO RASHMI GONZALES, CARE ENDORSED.
--- NOTE | 2020-05-28 20:00 | NUR ---
RECIEVED PT INTUBATED AND SEDATE, AFEBRILE, RIGHT UPPER CHEST PLEUREX CATHETER TO ATRIUM, NO DRAINAGE, NO AIRLEAK, SMALL AMT OF CREPITUS PALPABLE AROUND NECK AREA, HD CATHETER TO RIGHT FEMEROL, SEE INTERVENTIONS FOR FURTHER HEAD TO TOE ASSESSMENT , DRIPS AND VITAL SIGNS
[2020-05-28] MEDS: ATORVASTATIN 20 MG TAB PO SCH (22:22)
[2020-05-28] MEDS: PROPOFOL 100 ML IV SCH (23:13)
[2020-05-29] VITALS (96 sets, daily range): BP systolic 55–128; BP diastolic 19–58
[2020-05-29] MEDS: fentaNYL Drip 2500mCg/250mlNS 250 ML IV SCH (01:54)
--- NOTE | 2020-05-29 02:30 | NUR ---
COMPLETE BATH AND LINEN CHANGE, SLIN INTACT, OPTIFOAM TO COCCYX
[2020-05-29 04:36] LABS: Basophils # (auto) 0.1 10 ^3/uL (0-0.2); Basophils % (auto) 0.8 % (0.0-2.0); Eosinophils # (auto) 0.2 10 ^3/uL (0-0.8); Eosinophils % (auto) 1.7 % (0.0-7.0); Hematocrit 25.7 % (41.0-53.0); Hemoglobin 8.4 g/dL (13.5-17.5); Lymphocytes % (auto) 7.4 % (10.0-50.0); Mean Corpuscular Hemoglobin 28.4 pg (28.0-32.0); Mean Corpuscular Hgb Conc. 32.8 g/dL (32.0-36.0); Mean Corpuscular Volume 86.5 fL (80.0-100.0); Monocytes # (auto) 0.7 10 ^3/uL (0-1.3); Neutrophils # (auto) 11.7 10 ^3/uL (1.6-8.6); Neutrophils % (auto) 85.1 % (37.0-80.0); Platelet Count (auto) 210 10^3/uL (140-450); Red Blood Cells 2.97 10^6/uL (4.5-5.90); Red Cell Distribution Width 16.5 % (11.8-14.3); White Blood Cell 13.7 10^3/uL (4.4-10.8)
[2020-05-29 04:58] LABS: BUN/Creatinine Ratio 12.5; Calcium 7.4 mg/dL (8.5-10.1); Potassium 4.2 mmol/L (3.5-5.1)
[2020-05-29] MEDS: IPRATROPIUM BROM 0.5 MG/2.5ML INH SOL NEB SCH ×5 (06:44→22:33)
[2020-05-29] MEDS: ALBUTEROL SULF 2.5 MG/0.5ML(0.5%) NEB SOLN NEB SCH ×5 (06:44→22:33)
[2020-05-29] MEDS: ENOXAPARIN SOD 30 MG/0.3 ML SYRINGE SC SCH (09:00)
[2020-05-29] MEDS: CLOPIDOGREL BISULFATE 75 MG TAB PO SCH (09:00)
[2020-05-29] MEDS: PANTOPRAZOLE 40 MG/10 ML VIAL INJ IV SCH (09:00)
[2020-05-29] MEDS: ASPirin-EC 81 mg tab PO SCH (09:00)
[2020-05-29] MEDS: NICOTINE 21MG/24 HR TOPICAL PATCH TD SCH (09:01)
[2020-05-29] MEDS ORDERED: PHENYLEPHRINE IV 250 ML IV SCH (09:15)
--- NOTE | 2020-05-29 09:37 | NUR ---
CRITICAL ABG RESULTS REPORTED TO DR TURNER. NO CHANGES AT THIS TIME.
[2020-05-29] MEDS: MEROPENEM 1GM IVPB 100 ML IV SCH ×2 (09:55→21:00)
--- NOTE | 2020-05-29 10:02 | NUR ---
NEW ORDERS PER DR TURNER. PT IS NOW ON PCV, RR 30, IP 28, PEEP5, I TIME 0.8, 60% FIO2. I:E RATIO IS NOW 1:1.5
--- NOTE | 2020-05-29 10:13 | NUR ---
Nutrition Followup Notes: Wt: 70.0 kg Pt is intubated and sedated with propofol running @ 9.675 ml/hr, providing 255 kcals from fats. Pt is NPO with no diet order yet. Est Energy needs BW 77 [id number] kcals (30-35 kcal/kgBW), d/t pt with HD, Est Protein needs: 92-107 gms/day (1.2-1.4 gm/kgBW r/t HD). d/t pt with HD. Will continue to monitor and reassess prn. LABS: GLU 129 H, BUN 50 H, CREAT 3.99 H, CA 7.4 L GI: Pt had 1 BM on 05/25 per RN doc BS: 12 high risk. Refer to wound assessment report for full details. PES: Altered nutrition related labs r/t to current medical condition aeb pt with elevated RFTs, hyperglycemia Comments 1) Gradually advance pt to oral diet when medically feasible and as tolerated per MD approval 2) Consider EN support with nephro carb staedy @ 55 ml/hr per MD approval on current rate of propofol 3) Continue current plan of care
[2020-05-29] MEDS: MIDAZOLAM DRIP 50 mg/50mL 50 ML IV SCH (11:00)
[2020-05-29] MEDS: NOREPINEPHRINE 8 MG/250ML KIT 250 ML IV SCH (11:00)
[2020-05-29] MEDS: LINEZOLID 600MG/300ML 300 ML IV SCH (12:00)
--- NOTE | 2020-05-29 12:35 | NUR ---
JORJE OBTAINED. CALLED DR TURNER NO ANSWER.
[2020-05-29] MEDS: FLUCONAZOLE 200MG/100ML 100 ML IV SCH ×2 (14:09→16:28)
[2020-05-29] MEDS: PHENYLEPHRINE INJ 40 MG in SODIUM CHL 0.9% 250 ML IV SCH ×2 (19:38→23:41)
[2020-05-29] MEDS: ATORVASTATIN 20 MG TAB PO SCH (22:00)
[2020-05-29] MEDS: PROPOFOL 100 ML IV SCH (23:13)
[2020-05-30] VITALS (94 sets, daily range): BP systolic 66–143; BP diastolic 12–55
[2020-05-30] MEDS: MIDAZOLAM DRIP 50 mg/50mL 50 ML IV SCH ×5 (00:39→19:28)
--- NOTE | 2020-05-30 02:13 | NUR ---
More difficult to maintain pt's bp, maxed up on neosynephrine, titrating up levophed, down the propofol, anticipated profound acidosis, rt will draw an ABG and inform MD.
--- NOTE | 2020-05-30 02:34 | NUR ---
ABG showing worsening metabolic acidosis with a ph of 6.98 and bicarb of -14.2. the hospitalist called and orders obtained for 2 amps bicarb. iv push followed by Bicarb. gtt at 100cc/hr. pt scheduled to have HD in am.
[2020-05-30] MEDS ORDERED: SODIUM BICARBONATE 8.4 % INJ 50ML VIAL IV ONE (02:45)
[2020-05-30] MEDS ORDERED: SODIUM BICARBONATE 50ML VIAL 100 ML in D5W/SOD CHL 0.45% 1,000 ML IV SCH (02:45)
[2020-05-30] MEDS: PROPOFOL 100 ML IV SCH (04:23)
[2020-05-30] MEDS: PHENYLEPHRINE INJ 40 MG in SODIUM CHL 0.9% 250 ML IV SCH ×2 (04:25→19:58)
[2020-05-30 04:52] LABS: Basophils # (auto) 0 10 ^3/uL (0-0.2); Eosinophils # (auto) 0.1 10 ^3/uL (0-0.8); Eosinophils % (auto) 0.5 % (0.0-7.0); Hematocrit 29.1 % (41.0-53.0); Hemoglobin 9.3 g/dL (13.5-17.5); Lymphocytes # (auto) 0.5 10 ^3/uL (0.4-5.4); Lymphocytes % (auto) 2.8 % (10.0-50.0); Mean Corpuscular Hemoglobin 28.5 pg (28.0-32.0); Monocytes # (auto) 0.5 10 ^3/uL (0-1.3); Monocytes % (auto) 2.8 % (0.0-12.0); Neutrophils # (auto) 16.9 10 ^3/uL (1.6-8.6); Neutrophils % (auto) 93.9 % (37.0-80.0); Nucleated Red Blood Cells % 0.2 %; Platelet Count (auto) 252 10^3/uL (140-450); Red Blood Cells 3.27 10^6/uL (4.5-5.90); Red Cell Distribution Width 16.5 % (11.8-14.3)
[2020-05-30 05:11] LABS: Calcium 6.9 mg/dL (8.5-10.1); Potassium 5.2 mmol/L (3.5-5.1)
[2020-05-30 05:14] LABS: BUN/Creatinine Ratio 10.3; Bilirubin, Total 0.7 mg/dL (0.2-1.0); Total Protein 5.5 g/dL (6.4-8.2)
[2020-05-30] MEDS ORDERED: SODIUM CHL 0.9% 1000 ML BAG XX ONE (07:00)
[2020-05-30] MEDS: IPRATROPIUM BROM 0.5 MG/2.5ML INH SOL NEB SCH ×5 (07:12→22:16)
[2020-05-30] MEDS: ALBUTEROL SULF 2.5 MG/0.5ML(0.5%) NEB SOLN NEB SCH ×5 (07:12→22:16)
--- NOTE | 2020-05-30 07:51 | NUR ---
Critical ABG Results RT attempting to contact Dr. Duran at this time. Voicemail left and text message with ABG results sent as well. Awaiting for return phone call for further ventilator setting orders. Patient on continuos NaBicarb drip. Max out on vasopressors. RR at 30 bpm. Will continue to monitor closely.
--- NOTE | 2020-05-30 08:12 | NUR ---
Family Contact Geetha, daughter, notified on patient's condition including critical ABG results. Wishes to speak to Technology Architect for further prognosis, also asking if the patient's condition does not improve the sedation can be turned off prior to a possible terminal wean. Will notify providers.
[2020-05-30] MEDS ORDERED: VASOPRESSIN 50 UNITS in D5W 5% 247.5 ML IV SCH (08:45)
--- NOTE | 2020-05-30 08:56 | NUR ---
Sausage Tier on the Phone Dr. Duran updated on patient's status including critical ABG. No orders for ventilator changes at this time. States he will round on patient today. Notified family wishes to communicate directly for further information and respiratory prognosis, stated he will try to communicate once he rounds on patient. Will continue to monitor closely.
[2020-05-30 09:37] LABS: % Iron Saturation 14.2 % (20-55)
[2020-05-30] MEDS: NICOTINE 21MG/24 HR TOPICAL PATCH TD SCH (10:00)
[2020-05-30] MEDS: MEROPENEM 1GM IVPB 100 ML IV SCH ×2 (11:00→21:00)
[2020-05-30] MEDS: PANTOPRAZOLE 40 MG/10 ML VIAL INJ IV SCH (11:06)
[2020-05-30] MEDS: ENOXAPARIN SOD 30 MG/0.3 ML SYRINGE SC SCH (11:06)
[2020-05-30] MEDS: ASPirin-EC 81 mg tab PO SCH (11:06)
[2020-05-30] MEDS: CLOPIDOGREL BISULFATE 75 MG TAB PO SCH (11:06)
--- NOTE | 2020-05-30 12:30 | NUR ---
environmental remediation consultant at Bedside Provided with Heparin, NS x 2L, and supplies. BP stable for dialysis, diastolic BP trending lower. Will continue to monitor closely.
[2020-05-30] MEDS: FLUCONAZOLE 200MG/100ML 100 ML IV SCH ×2 (13:00→15:00)
[2020-05-30] MEDS: LINEZOLID 600MG/300ML 300 ML IV SCH ×3 (14:00→22:55)
--- NOTE | 2020-05-30 15:30 | NUR ---
Nephrology at Bedside Dr. Willingham at bedside. Updated on patient's status. No orders received.
[2020-05-30 15:52] LABS: INR 1.08 (0.9-1.15)
[2020-05-30 16:10] LABS: Partial Thromboplastin Time 70.6 sec (23.64-32.05)
--- NOTE | 2020-05-30 17:25 | NUR ---
PICK RN AT BEDSIDE TO REPLACE THE MIDLINE WITH A PICK LINE DUE TO NEED OF CENTRAL IV ACCESS
--- NOTE | 2020-05-30 17:28 | NUR ---
PICC line placement Patient significant other educated on need for PICC line placement. All risks and benefits explained and all questions and concerns addressed prior to procedure. Noted past medical history and allergies with no contraindications. INR and Plt counts within acceptable range. 5 fr PICC line inserted via RIGHT BRACHIAL vein using [employer]'s [employer] US and Tip Location System. Sterile technique with maximum barrier precautions utilized. Blood return obtained from each of THE 3 lumens and each flushed easily with NS using proper technique. PICC secured with Stat-lock; biodisc and occlusive dressing applied. Stat portable chest x-ray obtained for PICC tip placement. *Baseline Arm Circumference 27CM, INTERNAL LENGTH 43CM, EXTERNAL LENGTH 0CM. PICC lot # [id number]. Note:MIDLINE EXCHANGED TO PICC LINE USING STERILE TECHNIQUE
[2020-05-30] MEDS ORDERED: LIDOCAINE 1% (LOCAL ANESTH.) PF 5ml SDV ID ONE (17:30)
--- NOTE | 2020-05-30 17:54 | NUR ---
OK to use PICC line Xray completed. OK to use PICC line . PRIMARY RN NOTIFIED
--- NOTE | 2020-05-30 19:22 | NUR ---
Respiratory note: GAVE ABG RESULTS TO DR. TURNER: PH 7.114, PCO2 114.2, PO2 48, HCO3 35.[address] TURNER SAID THE LEAVE SETTINGS THE SAME WITH NO CHANGES. WILL CONTINUE TO MONITOR.
[2020-05-30] MEDS: fentaNYL Drip 2500mCg/250mlNS 250 ML IV SCH (20:00)
[2020-05-30] MEDS: SODIUM CHLOR 0.9% PF (SALINE LOCK) 10ML VIAL/SYR IV SCH (22:00)
[2020-05-30] MEDS: ATORVASTATIN 20 MG TAB PO SCH (22:13)
[2020-05-31] VITALS (65 sets, daily range): BP systolic 22–132; BP diastolic 14–51
[2020-05-31] MEDS: NOREPINEPHRINE 8 MG/250ML KIT 250 ML IV SCH ×2 (00:24→12:18)
[2020-05-31 04:30] LABS: Mean Corpuscular Volume 89.4 fL (80.0-100.0)
[2020-05-31 04:32] LABS: Hematocrit 24.4 % (41.0-53.0); Hemoglobin 7.9 g/dL (13.5-17.5); Mean Corpuscular Hemoglobin 28.8 pg (28.0-32.0); Mean Corpuscular Hgb Conc. 32.2 g/dL (32.0-36.0); Platelet Count (auto) 200 10^3/uL (140-450); Red Blood Cells 2.73 10^6/uL (4.5-5.90); Red Cell Distribution Width 17.1 % (11.8-14.3); White Blood Cell 17.3 10^3/uL (4.4-10.8)
[2020-05-31 04:43] LABS: Calcium 6.7 mg/dL (8.5-10.1); Potassium 4.8 mmol/L (3.5-5.1)
[2020-05-31 04:46] LABS: BUN/Creatinine Ratio 8.4; Total Protein 5.5 g/dL (6.4-8.2)
[2020-05-31 05:03] LABS: Basophils % (manual) 0 (0.0-2.0); Blast Cells 0; Eosinophils % (manual) 0 (0-7); Metamyelocytes % 0; Myelocytes % 0; Promyelocytes % 0; Reactive Lymphocytes 0
[2020-05-31 05:24] LABS: Band Neutrophils % (manual) 5; Lymphocytes % (manual) 9 (10.0-50.0); Monocytes % (manual) 2 (0-12)
[2020-05-31] MEDS: PHENYLEPHRINE INJ 40 MG in SODIUM CHL 0.9% 250 ML IV SCH ×2 (06:20→12:10)
[2020-05-31] MEDS: ALBUTEROL SULF 2.5 MG/0.5ML(0.5%) NEB SOLN NEB SCH ×2 (06:31→10:11)
[2020-05-31] MEDS: IPRATROPIUM BROM 0.5 MG/2.5ML INH SOL NEB SCH ×2 (06:31→10:11)
--- NOTE | 2020-05-31 06:39 | NUR ---
Respiratory note: RECEIVED PATIENT ON V19 ESPRIT VENT ORALLY INTUBATED WITH AN 8.0 ETT SECURED VIA PARTH AT THE 24CM MARKING AT THE LIP, AND MECHANICALLY VENTILATED WITH THE CHARTED SETTINGS. SPO2 97%, LUNG SOUNDS COARSE IN APICES/DIM IN BASES, MODERATE AMOUNT OF THIN CLEAR SECRETIONS WHEN SUCTIONED. SKIN IS WARM/DRY TO THE TOUCH AND IS INTACT NEAR PARTH SITE. THERE IS A NGT PLACED IN THE RIGHT NARE, AND A MIDLINE CATHETER IS PLACED IN THE RIGHT BRACHIAL VEIN. NO OTHER ADVACE ACCESS LINES NOTED. AM CXR ASSESSED AND IT SHOWS ETT IN SATISFACTORY POSITION SITTING APPROX 4.4CM ABOVE THE SUSAN. NO INDICATION TO ADJUST TUBE AT THIS TIME. PATIENT IS UNRESPONSIVE TO BOTH VERBAL/TACTILE STIMULI, AND IS SEDATED ON VERSED, PROPOFOL, AND FENTANYL DRIPS. HE IS RESTING COMFORTABLY AND TOLERATING VENT WELL, NO CHANGES MADE. VENT PLUGGED INTO RED OUTLET AND ALL ALARMS ARE SET AND AUDIBLE. WILL CONTINUE TO ASSESS PATIENT WELL VENTILATOR FUNCTION. [employer] RUN INLINE.
--- NOTE | 2020-05-31 07:25 | NUR ---
OPENING NOTE RECEIVED REPORT FROM COATING MACHINE OPERATOR HELPER NURSE ROHAN GONZALES. PT IS INTUBATED AND SEDATED. NO S/S OF DISTRESS NOTED. CHEST TUBE AT BEDSIDE NO BUBBLING AT WATER SEAL. NO CREPITUS NOTED AROUND CHEST TUBE SITE. BED IS LOCKED AT LOWEST POSITION AND SIDE RAILS ARE UP. WILL CONTINUE TO MONITOR. Signed: 05/31/20 at 1132 by SHELLY VIGIL SN <Co-Signature Required> Co-Signed: 05/31/20 at 1132 by Bernadette Pavon RN
--- NOTE | 2020-05-31 07:30 | NUR ---
REPORT REPORT RECEIVED FROM WARREN RNROHAN. BEDSIDE CHECK DONE.
[2020-05-31] MEDS: PROPOFOL 100 ML IV SCH (07:36)
--- NOTE | 2020-05-31 08:30 | NUR ---
ASSESSMENT PT RESTING IN BED WITH EYES CLOSED AND INTUBATED AND SEDATED. NO SPONTANEOUS MOVEMENT NOTED , NO COUGH OR GAG AND PUPILS BLOWN AND NOT RESPONSIVE TO LIGHT. ON THE VENTILATOR WITH SETTINGS OF: 8 FR ETT/ 24 AT THE LIP, PC WITH RATE OF 24, PRESSURE OF 30, 65% FIO2 , AND PEEP OF 8. LUNGS CLEAR AND DIMINISHED THROUGHOUT AND WITH INSPIRATORY CRACKLES AND WHEEZE NOTED TO THE RIGHT LATERAL. O2 SAT OF 97% . TELE SR 94. PALPABLE PULSES TO ALL EXTREMITIES. ABD SOFT WITH HYPOACTIVE BOWEL SOUNDS. RIGHT NARES NGT, CLAMPED WITH NO RESIDUAL NOTED. ORTIZ CATHETER DRAINING CLEAR AVANI URINE. TURNED FOR COMFORT. PT CURRENTLYON SEDATION AND VASOPRESSORS TO A TLC, RUE, SITE BENIGN. CONTINUE TO MONITOR.
--- NOTE | 2020-05-31 08:30 | NUR ---
PT TEACHING PT UNABLE TO BENEFIT FROM PT TEACHING AT THIS TIME HE IS INTUBATED AND SEDATED. Addendum: 05/31/20 at 6 by Bernadette Pavon RN Amended: Links added.
[2020-05-31] MEDS: MEROPENEM 1GM IVPB 100 ML IV SCH (09:24)
[2020-05-31] MEDS: MIDAZOLAM DRIP 50 mg/50mL 50 ML IV SCH (09:27)
[2020-05-31] MEDS: PANTOPRAZOLE 40 MG/10 ML VIAL INJ IV SCH (09:28)
[2020-05-31] MEDS: CLOPIDOGREL BISULFATE 75 MG TAB PO SCH (09:29)
[2020-05-31] MEDS: ASPirin-EC 81 mg tab PO SCH (09:29)
[2020-05-31] MEDS: NICOTINE 21MG/24 HR TOPICAL PATCH TD SCH (09:29)
[2020-05-31] MEDS: SODIUM CHLOR 0.9% PF (SALINE LOCK) 10ML VIAL/SYR IV SCH (09:30)
[2020-05-31] MEDS: ENOXAPARIN SOD 30 MG/0.3 ML SYRINGE SC SCH (09:30)
--- NOTE | 2020-05-31 10:00 | NUR ---
FAMILY AND EXTRACTIONS TECHNICIAN HERE AND IN TO THE BEDSIDE TO SEE THE PT.
--- NOTE | 2020-05-31 10:25 | NUR ---
PAGED AND SPOKE WITH DR VICENTE REGARDING FAMILY'S DESIRE TO DISCUSS POSSIBLE TERMINAL WEAN. SHE WILL BE DOWN IN ABOUT 15 MINUTES. MADE THE FAMILY AWARE.
--- NOTE | 2020-05-31 11:00 | NUR ---
FAMILY HERE AND SPOKE WITH DR VICENTE REGARDING TERMINAL WEAN
[2020-05-31] MEDS: LINEZOLID 600MG/300ML 300 ML IV SCH (12:20)
--- NOTE | 2020-05-31 13:15 | NUR ---
FAMILY FAMILY HAS PREVIOUSLY MADE ARRANGEMENTS WITH [facility]. SIGNED PAPER ALLOWING US TO RELEASE THE BODY TO THEM. WAITING FOR MD TO PRONOUNCE AND THEN WILL NOTIFY [facility] AND THE AESTHETICIAN. Addendum: 05/31/20 at 1636 by Bernadette Pavon RN CORRECT TIME SHOULD BE 1515
[2020-05-31] MEDS ORDERED: LORazepam 2MG/ML-1ML VIAL IV PRN (13:30)
[2020-05-31] MEDS ORDERED: MORPHINE SULF INJ 2 MG/ML SYRINGE 1ML IV PRN (13:30)
[2020-05-31] MEDS ORDERED: MORPHINE SULF INJ 2 MG/ML SYRINGE 1ML ONE (13:38)
--- NOTE | 2020-05-31 13:45 | NUR ---
PRE MEDICATED PT WITH MORPHINE 1MG IVP PRIOR TO TERMINAL WEAN WHICH WE WILL DO AT ABOUT 1400.
--- NOTE | 2020-05-31 14:26 | NUR ---
EXTUBATION PT MEDICATED PRIOR TO EXTUBATION. JANET NAIR, AND FAMILY AT BEDSIDE. Signed: 05/31/20 at 1745 by SHELLY VIGIL <Co-Signature Required> Co-Signed: 05/31/20 at 1745 by Bernadette Pavon RN
--- NOTE | 2020-05-31 14:32 | NUR ---
Respiratory note: PATIENT TERMINALLY EXTUBATED AT THIS TIME PER FAMILY'S REQUEST AND DR. VICENTE'S ORDER. PATIENT PLACED ON 2LPM NASAL CANNULA FOR COMFORT. RN ZARINA AT BEDSIDE AND AWARE OF EXTUBATION. ALL RESPIRATORY ORDERS HAVE BEEN DC'D.
--- NOTE | 2020-05-31 14:38 | NUR ---
PT ASYSTOLE. FAMILY AT THE BEDSIDE AND AWARE. NO HEARTBEAT AUSCULTATED. NO BP. NO PULSE. CALLED AND NOTIFIED PT'S PRIMARY HOSPITALIST, DR VICENTE. SHE WILL COME DOWN TO PRONOUNCE.
--- NOTE | 2020-05-31 14:40 | NUR ---
Nutrition Followup Notes: Wt: 70.0 kg Pt is intubated and sedated with propofol running @ 7.74 ml/hr, providing 204 kcals from fats. Pt is NPO since 05/27 with no diet order yet. Will continue to monitor PO status, skin status, pertinent labs and weight trends. Will f/u in 2-3 days. Est Energy needs BW 77 [id number] kcals (30-35 kcal/kgBW), d/t pt with HD, Est Protein needs: 92-107 gms/day (1.2-1.4 gm/kgBW r/t HD). d/t pt with HD. Will continue to monitor and reassess prn. LABS: GLU 158 H, BUN 29 H, CREAT 3.45 H, GFR 19 L, CA 6.7 L, Alb 2.0 L GI: Pt had no BM today per RN doc BS: 12 high risk. Refer to wound assessment report for full details. PES: Altered nutrition related labs r/t to current medical condition aeb pt with elevated RFTs, hyperglycemia Comments 1) Gradually advance pt to oral diet when medically feasible and as tolerated per MD approval 2) Consider EN support with nephro carb staedy @ 55 ml/hr per MD approval on current rate of propofol 3) Continue current plan of care
--- NOTE | 2020-05-31 15:51 | NUR ---
DR SHAIKH TORRES TO PRONOUNCE PTS TOD. Signed: 05/31/20 at 1746 by SHELLY VIGIL <Co-Signature Required> Co-Signed: 05/31/20 at 174 by Bernadette Pavon RN
--- NOTE | 2020-05-31 15:56 | NUR ---
PT PRONOUNCED BY AURY MO .
--- NOTE | 2020-05-31 15:57 | NUR ---
[facility] PER DUNIA LEVY NOT ELIGIBLE FOR DONATION #[id number] Signed: 05/31/20 at 1746 by SHELLY VIGIL <Co-Signature Required> Co-Signed: 05/31/20 at 1746 by Bernadette Pavon RN
--- NOTE | 2020-05-31 16:08 | NUR ---
FIRST CALL TO PROPERTY DEVELOPER OFFICE AWAITING CALL BACK FROM PROPERTY DEVELOPER. Signed: 05/31/20 at 1746 by SHELLY VIGIL <Co-Signature Required> Co-Signed: 05/31/20 at 174 by Bernadette Pavon RN
--- NOTE | 2020-05-31 16:58 | NUR ---
RETURN CALL FROM COLLAR CLOSER LOCKSTITCH PER CYNDI PT WILL NOT BE A CORONERS CASE #[id number] Signed: 05/31/20 at 1747 by SHELLY VIGIL <Co-Signature Required> Co-Signed: 05/31/20 at 1747 by Bernadette Pavon RN
--- NOTE | 2020-05-31 18:37 | NUR ---
POST MORTEM CARE PT PLACED INTO BODY BAG AND TAGGED. [facility] SPOKE WITH MYLENE [phone] ETA 60-90MIN Signed: 05/31/20 at 1925 by SHELLY VIGIL <Co-Signature Required> Co-Signed: 05/31/20 at 1925 by Bernadette Pavon RN
--- NOTE | 2020-05-31 20:00 | NUR ---
[facility] STAFF HERE TO PLASTIC WORKER PT. CALLED PT'S DAUGHTER, NAI, AND LET HER KNOW HER FATHER HAD BEEN PICKED UP BY [facility]
== END 2020-05-31 15:56 | disposition expired | DRG 710 ==
LOC: EDBD 14:50 → EDUNIT# 14:50 → ER 14:50 → TELE 14:51 → TELE-EAST 05-13 01:00 → TELE-WESTW 05-13 03:25 → DOU IN ICU 05-25 22:07 → ICU WEST 05-25 23:35
PROVIDERS: ADMIT Nurse Practitioner; ATTEND Internal Medicine
PROC: 5A09457 Assistance with Respiratory Ventilation, 24-96 Consecutive Hours, Continuous Positive Airway Pressure (ICD-10-PCS; 2020-05-13)
PROC: 5A1D70Z Performance of Urinary Filtration, Intermittent, Less than 6 Hours Per Day (ICD-10-PCS; 2020-05-14)
PROC: 02HV33Z Insertion of Infusion Device into Superior Vena Cava, Percutaneous Approach (ICD-10-PCS; 2020-05-14)
PROC: 5A1D70Z Performance of Urinary Filtration, Intermittent, Less than 6 Hours Per Day (ICD-10-PCS; 2020-05-22)
PROC: 027034Z Dilation of Coronary Artery, One Artery with Drug-eluting Intraluminal Device, Percutaneous Approach (ICD-10-PCS; principal; 2020-05-25)
PROC: 4A023N7 Measurement of Cardiac Sampling and Pressure, Left Heart, Percutaneous Approach (ICD-10-PCS; 2020-05-25)
PROC: B211YZZ Fluoroscopy of Multiple Coronary Arteries using Other Contrast (ICD-10-PCS; 2020-05-25)
PROC: B215YZZ Fluoroscopy of Left Heart using Other Contrast (ICD-10-PCS; 2020-05-25)
PROC: 5A09357 Assistance with Respiratory Ventilation, Less than 24 Consecutive Hours, Continuous Positive Airway Pressure (ICD-10-PCS; 2020-05-25)
PROC: 0BH17EZ Insertion of Endotracheal Airway into Trachea, Via Natural or Artificial Opening (ICD-10-PCS; 2020-05-26)
PROC: 5A1955Z Respiratory Ventilation, Greater than 96 Consecutive Hours (ICD-10-PCS; 2020-05-26)
PROC: 0W9930Z Drainage of Right Pleural Cavity with Drainage Device, Percutaneous Approach (ICD-10-PCS; 2020-05-27)
PROC: 5A1D70Z Performance of Urinary Filtration, Intermittent, Less than 6 Hours Per Day (ICD-10-PCS; 2020-05-27)
PROC: 06HM33Z Insertion of Infusion Device into Right Femoral Vein, Percutaneous Approach (ICD-10-PCS; 2020-05-27)
PROC: B54BZZA Ultrasonography of Right Lower Extremity Veins, Guidance (ICD-10-PCS; 2020-05-27)
PROC: 5A1D70Z Performance of Urinary Filtration, Intermittent, Less than 6 Hours Per Day (ICD-10-PCS; 2020-05-30)
DX: A41.51 Sepsis due to Escherichia coli [E. coli] (principal); J18.9 Pneumonia, unspecified organism; R65.20 Severe sepsis without septic shock; N39.0 Urinary tract infection, site not specified; J96.01 Acute respiratory failure with hypoxia; N17.0 Acute kidney failure with tubular necrosis; E44.0 Moderate protein-calorie malnutrition; N18.9 Chronic kidney disease, unspecified; I13.0 Hypertensive heart and chronic kidney disease with heart failure and stage 1 through stage 4 chronic kidney disease, or unspecified chronic kidney disease; D64.9 Anemia, unspecified; D69.59 Other secondary thrombocytopenia; E78.1 Pure hyperglyceridemia; Z03.818 Encounter for observation for suspected exposure to other biological agents ruled out; E87.6 Hypokalemia; G89.29 Other chronic pain; I27.20 Pulmonary hypertension, unspecified; I34.0 Nonrheumatic mitral (valve) insufficiency; I50.43 Acute on chronic combined systolic (congestive) and diastolic (congestive) heart failure; J93.9 Pneumothorax, unspecified; E87.1 Hypo-osmolality and hyponatremia; E87.5 Hyperkalemia; E11.22 Type 2 diabetes mellitus with diabetic chronic kidney disease; J44.0 Chronic obstructive pulmonary disease with (acute) lower respiratory infection; T38.0X5A Adverse effect of glucocorticoids and synthetic analogues, initial encounter; F17.210 Nicotine dependence, cigarettes, uncomplicated; F32.9 Major depressive disorder, single episode, unspecified; F41.9 Anxiety disorder, unspecified; Z20.828 Contact with and (suspected) exposure to other viral communicable diseases; M54.5 Low back pain; I25.10 Atherosclerotic heart disease of native coronary artery without angina pectoris; I25.2 Old myocardial infarction; Z86.73 Personal history of transient ischemic attack (TIA), and cerebral infarction without residual deficits; Z88.1 Allergy status to other antibiotic agents; Z88.0 Allergy status to penicillin; Y92.89 Other specified places as the place of occurrence of the external cause; Z83.3 Family history of diabetes mellitus; Z84.1 Family history of disorders of kidney and ureter; Z71.6 Tobacco abuse counseling; Z66 Do not resuscitate; T80.219A Unspecified infection due to central venous catheter, initial encounter; B95.8 Unspecified staphylococcus as the cause of diseases classified elsewhere; Z68.24 Body mass index [BMI] 24.0-24.9, adult
CPT/HCPCS: 36415; 36569; 36600; 71045; 71046; 71250; 76700; 78582; 80048; 80053; 80061; 80307; 81001; 82306; 82533; 82570; 82728; 82805; 82962; 83036; 83540; 83550; 83605; 83615; 83735; 83880; 83970; 84100; 84132; 84156; 84300; 84443; 84484; 85007; 85025; 85027; 85379; 85610; 85730; 86141; 86705; 86706; 86803; 86850; 86900; 86901; 87040; 87070; 87077; 87086; 87088; 87186; 87205; 87340; 90935; 92928; 93005; 93306; 93460; 93970; 94002; 94003; 94640; 94660; 94760; 97110; 97116; 97530; 99152; 99153; C1751; C1874; C1887; C9113; G0378; J0330; J0696; J1450; J1642; J1815; J1885; J2185; J2250; J2543; J2704; J3480; J3490; J7060; Q9967